=== PATIENT | male | born 1955 | race African-American/Black ===

== ENCOUNTER → 2018-12-24 18:40 | Outpatient (CLI) | payer BC | END | disposition home or self-care (01) | LOC: D.LABREF 18:40 | PROVIDERS: ATTEND Orthopaedic Surgery | DX: M19.012 Primary osteoarthritis, left shoulder (principal) ==

== ENCOUNTER 2018-12-30 11:32 | Inpatient (IN) | payer BC ==
[2019-02-17] MEDS ORDERED: COZAAR100 MG PO (14:45)
[2019-02-17] MEDS ORDERED: SINEMET PO (14:45)
[2019-02-17] MEDS ORDERED: RYTARY (14:46)
[2019-02-17] MEDS ORDERED: CARBIDOPA-LEVO1 EAC2 PO (14:47)
[2019-02-17 15:41] LABS: BASOPHILS 0.3 % (0-2); EOSINOPHILS 3.2 % (0-7); HEMATOCRIT 47.2 % (42.0-54.0); HEMOGLOBIN 16.8 g/dL (13.5-17.5); IMMATURE GRANULOCYTES 0.6 % (0-5); LYMPHOCYTES 21.6 % (15-50); MCH 29.9 pg (26.0-34.0); MCHC 35.6 g/dL (31.0-37.0); MEAN PLATELET VOLUME 9.9 fL (7.4-10.4); MONOCYTES 7.1 % (2-11); NEUTROPHILS 67.2 % (40-80); PLATELET COUNT 196 10x3/uL (130-400); RBC 5.62 10x6/uL (4.20-6.10); RDW 14.4 % (11.5-14.5); WBC 6.8 10x3/uL (4.8-10.8)
[2019-02-17 16:14] LABS: APPEARANCE CLEAR (CLEAR); BILIRUBIN NEGATIVE (NEGATIVE); COLOR YELLOW (YELLOW); GLUCOSE NEGATIVE (NEGATIVE); KETONE NEGATIVE (NEGATIVE); NITRITE NEGATIVE (NEGATIVE); PROTEIN NEGATIVE (NEGATIVE); UROBILINOGEN NORMAL (NORMAL)
[2019-02-17 16:31] LABS: CALCIUM 8.7 mg/dL (8.5-10.1); CARBON DIOXIDE 25.2 mmol/L (21.0-32.0); CREATININE - SERUM 1.1 mg/dL (0.6-1.3); POTASSIUM - SERUM 4.2 mmol/L (3.5-5.1)
[2019-02-17 16:37] LABS: APTT 32.9 SECONDS (22.8-39.4); INR 0.86 (0.85-1.17); PROTIME 11.3 SECONDS (11.6-15.0)
[2019-02-19] VITALS (7 sets, daily range): BP systolic 91–137; BP diastolic 36–87; BMI 33.1
--- NOTE | 2019-02-19 12:42 | NUR ---
ASSESSMENT PER ADMIT FLOW SHEET. PT IS WITHOUT DISTRESS. COMPLAINS OF PAIN TO BILATERAL KNEES.HIS STATES ARTHRITIS PAIN ALL THE TIME. PT DENIES PAIN IN LEFT SHOULDER.DRESSING TO LEFT SHOULDER HAS SOME RED DRAINAGE NOTED UNDER TOP OF DRESSING.CALL LIGHT IN REACH
--- NOTE | 2019-02-19 17:13 | OP ---
PATIENT NAME: LUCILA VITAL MEDICAL RECORD: [id number] :59 LOCATION:D.[id number] ADMISSION DATE:02/19/19 SURGEON: LATOSHA MENDOZA MD DATE OF OPERATION: 02/19/2019 PREOPERATIVE DIAGNOSIS: Degenerative arthritis, left shoulder. POSTOPERATIVE DIAGNOSIS: Degenerative arthritis, left shoulder. PROCEDURE: Left total shoulder arthroplasty. SURGEON: Latosha Mendoza MD HYDRAULIC TECHNICIAN: JIM Quevedo INTRAOPERATIVE COMPLICATIONS: None. SUMMARY OF PATHOLOGIC FINDINGS: Extensive osteoarthritis of the glenohumeral joint of the left shoulder. IMPLANTS USED: Arthrex Univers apex humeral stem size 10. A large apex Univers VaultLock, apex Univers humeral head 52-20 offset press fit. OPERATIVE SUMMARY IN DETAIL: After obtaining the appropriate preoperative orthopedic surgery consent as well as anesthetic consultation, evaluation, and clearance, the patient was brought to the operating room and placed on the operating table in supine position. After general laryngeal mask airway was administered, the patient was placed in the beach chair position. All pressure points were well padded. He was held firmly to the operating table using the vacuum pack suction system. Left upper extremity and shoulder were then prepped and draped in routine sterile fashion. The arm was held in the Arthrex Trimano arm holding device. The previously utilized incision was utilized again for a deltopectoral approach. The cephalic vein was identified and protected throughout the entire case. Deltopectoral interval was taken down. Clavipectoral fascia was incised. The deltoid was retracted using the brown retractor. At this point, the subscapularis was taken off in a peel method. Biceps was cut and saved for later tenodesis. The humeral head was then dislocated through the wound. Humeral head cut was made using the proximal humeral head cutting guide for the Univers system. Serial and sequential reaming and broaching were done for a size 10 Univers apex system. The broach was put into place with the humeral head cut protector. The glenoid was then approached. Circumferential labrectomy was then followed by placing center pin reaming for a size large glenoid. The final preparations were made for the size large glenoid with the apex and inferior keel holes. Irrigation was then followed by final preparation then followed by cementing of the VaultLock system in place. Excess cement was removed. This was held in place while the cement was allowed to harden. Shoulder was then brought back to the wound. The trial was taken out final size 10 apex Univers was tamped into place. Inferior and superior locks were tamped followed by placement of the humeral head, tamped in place with the Snyder taper. Shoulder was reduced to the appropriate posterior subluxation of proximal 1/3. At this point, the subscapularis was reapproximated to the lesser tuberosity in transosseous fashion using #2 Ethibond with a biceps tenodesis incorporated. Wound was then irrigated and finally closed with #1 Vicryl, 2-0 Vicryl and skin himanshu done by JIM Quevedo. Sterile dressings were applied. The patient was awakened and taken to OPERATIVE REPORT [id number] LUCILA VITAL recovery room in stable condition. All final needle and sponge counts were correct. TRANSINT:[id number] Voice Confirmation ID: [id number] DOCUMENT ID: [id number] KELLY CID, LATOSHA KNIGHT at 1713 CC: [id number] DICTATION DATE: 02/19/19 1011 DRY CELL ASSEMBLY MACHINE TENDER: 02/19/19 1058 ADM IN [facility] [address] [id number]
--- NOTE | 2019-02-19 20:00 | NUR ---
ALERT RESTING IN BED, MADELEINE WRAP AND DRESSING INTACT TO LEFT ARM AND SHOULDER, DENEIS PAIN STATES STILL NUMB ABLE TO MOVE FINGERS, SEE SHIFT ASSESSMENT, CALL LIGHT IN USE
[2019-02-20] VITALS: BP 107/69
[2019-02-20 04:00] VITALS: BP 122/74
[2019-02-20 04:28] LABS: HEMATOCRIT 43.6 % (42.0-54.0); MCH 29.8 pg (26.0-34.0); MCHC 34.4 g/dL (31.0-37.0); MCV 86.5 fL (80.0-100.0); RBC 5.04 10x6/uL (4.20-6.10); RDW 14.9 % (11.5-14.5); WBC 16.3 10x3/uL (4.8-10.8)
--- NOTE | 2019-02-20 07:22 | NUR ---
PATIENT LYING IN BED. ALERT AND ORIENTED X 3. LUNGS CLEAR BILATERALLY IN ALL MEDINA. HEART SOUNDS S1 AND S2 HEARD IN ALL MEDINA. BOWEL SOUNDS ACTIVE X 4. IV TO RIGHT HAND PATENT WITHOUT REDNESS. SKIN INTACT WITHOUT REDNESS. DRESSING TO LEFT SHOULDER C/D/I. DENIES PAIN DENIES NEEDS. WILL CONTINUE TO MONITOR.
[2019-02-20 08:00] VITALS: BP 110/78
[2019-02-20] MEDS ORDERED: PERCOCET 10-321 EAC1 PO (08:24)
--- NOTE | 2019-02-20 08:32 | NUR ---
SITTING IN BED EATING BREAKFAST. MEDICATIONS GIVEN WITHOUT DIFFICULTY. DENIES PAIN. DENIES NEEDS. WILL CONTINUE TO MONITOR.
--- NOTE | 2019-02-20 10:01 | NUR ---
DISCHARGE EDUCATION PROVIDED BOTH WRITTEN AND VERBAL. VERBALIZED UNDERSTANDING. DRSG CHANGED TO LEFT SHOULDER. INCISIONS C/D/I. ADDITIONAL DRESSING SENT WITH PATIENT. IV REMOVED TO RIGHT HAND WITH TIP INTACT. DENIES FURTHER QUESTIONS. DISCHARGED HOME WITH ALL BELONGINGS.
[2019-02-26 09:53] VITALS: BMI 33.1
== END 2019-02-20 10:17 | disposition home or self-care (01) | DRG 483 ==
LOC: D.SDCHOLD 02-16 07:30 → D.MS 02-19 10:54 → D.SDCHOLD 02-19 13:10 → D.MS 02-20 10:17
PROVIDERS: ADMIT Orthopaedic Surgery; ATTEND Orthopaedic Surgery
PROC: 0RRK0JZ Replacement of Left Shoulder Joint with Synthetic Substitute, Open Approach (ICD-10-PCS; principal; 2019-02-19 08:45)
DX: M19.012 Primary osteoarthritis, left shoulder (principal)

== ENCOUNTER → 2019-08-28 08:49 | Outpatient (CLI) | payer BC ==
[2019-02-26 09:53] VITALS: BMI 33.1
[~2019-08-28 08:49] MED LIST: AMANTADINE100 M1 PO; CARBIDOPA-LEVO1 EAC2 PO; COZAAR100 MG PO; PAXIL10 MG PO; PERCOCET 10-321 EAC1 PO; RYTARY; SINEMET 25-1001 EAC1 PO; SINEMET PO; TRAZODONE TAB 50M PO; XANAX0.25 MG PO
== END | disposition home or self-care (01) ==
LOC: D.RAD 08:49 → D.CT 10:30
PROVIDERS: ATTEND Clinical Nurse Specialist Family Health
DX: M25.512 Pain in left shoulder (principal)

== ENCOUNTER 2019-09-24 08:25 | Day surgery (SDC) | payer BC ==
[2019-09-22 11:17] LABS: HEMATOCRIT 44.7 % (42.0-54.0); HEMOGLOBIN 15.3 g/dL (13.5-17.5); MCH 30.8 pg (26.0-34.0); MCHC 34.2 g/dL (31.0-37.0); MCV 89.9 fL (80.0-100.0); MEAN PLATELET VOLUME 10.2 fL (7.4-10.4); RBC 4.97 10x6/uL (4.20-6.10); RDW 13.7 % (11.5-14.5); WBC 6.8 10x3/uL (4.8-10.8)
[~2019-09-24] VITALS: Ht 182.9 cm; Wt 108.9 kg
[~2019-09-24 08:25] MED LIST changes: -SINEMET 25-1001 EAC1 PO
[2019-09-24] MEDS ORDERED: SINEMET 25-1001 EAC1 PO (09:39)
[2019-09-24 09:40] VITALS: BP 120/85; Ht 182.9 cm; Wt 108.9 kg
[2019-09-24] MEDS ORDERED: PERCOCET 10-321 EAC1 PO (11:16)
--- NOTE | 2019-09-24 14:04 | OP ---
PATIENT NAME: LUCILA VITAL MEDICAL RECORD: [id number] :59 LOCATION:[facility] ADMISSION DATE: SURGEON: LATOSHA MENDZOA MD DATE OF OPERATION: 09/24/2019 PREOPERATIVE DIAGNOSIS: Rotator cuff tear of the left shoulder. POSTOPERATIVE DIAGNOSES: 1. Rotator cuff tear of the left shoulder. 2. Impingement. PROCEDURES: 1. Open rotator cuff repair of the left shoulder. 2. Tuberoplasty of the left shoulder. 3. Subacromial decompression. SURGEON: Latosha Mendoza MD FOREST ENGINEER: JIM Bell ANESTHESIA: General. INTRAOPERATIVE COMPLICATIONS: None. SUMMARY OF PATHOLOGIC FINDINGS: The patient's greater tuberosity was prominent posterior; however, the rotator cuff was anterior. The rotator cuff required repair and the tuberosities were taken down to the level of the previously placed total shoulder arthroplasty. OPERATIVE SUMMARY IN DETAIL: After obtaining the appropriate preoperative orthopedic surgery consent as well as anesthetic consultation, evaluation and clearance, the patient was brought to the operating room and placed on the operating table in supine position. After adequate general laryngeal mask airway was administered, the patient was placed in the beach chair position. All pressure points were well-padded. He was held firmly to the operating table using the vacuum pack suction system. Left upper extremity and shoulder were then prepped and draped in routine sterile fashion. The arm was held in the Trimano arm holding device. After the appropriate timeout was taken, incision was made in anterolateral fashion, taken down to the level of the acromion anterior aspect. Periosteal reflection was done in order to save good periosteal tissue for reapproximation to the acromion. After reflection of the deltoid, the rotator cuff tear was exposed. Having completed this, the rotator cuff tear was completed out laterally. The supraspinatus was gently elevated to reveal the prominent tuberosities. Tuberosities were then taken down with a saw and smoothened to avoid any further impingement of the prominent greater tuberosity superiorly and posteriorly. Having completed this, copious irrigation was then followed by a pkzl-fa-pkgn reapproximation of the anterior aspect of the rotator cuff tear and then gljs-lx-wner reapproximation of the posterior leaflet that was created. This was then anchored down with two 4.75 SwiveLock posteriorly and anteriorly to the stem of the prosthesis. Good cortical purchase was achieved. A very small flap was then residual. This was fixed qrtz-pq-znun with FiberWire as well. Having completed this, a Cano elevator was placed underneath the acromion to protect it while acromioplasty was performed. Copious irrigation was then followed by reapproximation of the deltoid in a wezis-rjcl-demz style imbricated suture to reapproximate the OPERATIVE REPORT [id number] AMANUELLUCILA JOSE deltoid back to the acromion with #2 Ethibond. Further #2 Ethibond was then utilized to reapproximate the residual of the deltoid. Having completed this, Oneal Catherine closed the remainder of the wound with #1 Vicryl followed by skin himanshu. Sterile dressings were applied and abduction sling was applied. The patient was then awakened and taken to the recovery room in stable condition. All final needle and sponge counts were correct. TRANSINT:[id number] Voice Confirmation ID: [id number] DOCUMENT ID: [id number] KELLY CID, LATOSHA KNIGHT at 1404 CC: [id number] DICTATION DATE: 09/24/19 1120 DOG DAY CARE ATTENDANT: 09/24/19 1330 REG [facility] [address] [place] [address]
== END 2019-09-24 15:10 | disposition home or self-care (01) ==
LOC: D.OPS 08:25 → D.PAN 10:30 → D.OPS 10:35
PROVIDERS: Anesthesiology; ATTEND Orthopaedic Surgery
DX: M75.102 Unspecified rotator cuff tear or rupture of left shoulder, not specified as traumatic (principal); M25.80 Other specified joint disorders, unspecified joint

== ENCOUNTER 2019-11-12 07:25 | Day surgery (SDC) | payer BC ==
[2019-11-10 13:16] LABS: HEMOGLOBIN 14.5 g/dL (13.5-17.5); MCH 30.7 pg (26.0-34.0); MCHC 34.5 g/dL (31.0-37.0); MCV 88.8 fL (80.0-100.0); MEAN PLATELET VOLUME 9.6 fL (7.4-10.4); RBC 4.73 10x6/uL (4.20-6.10); RDW 14.1 % (11.5-14.5); WBC 6.1 10x3/uL (4.8-10.8)
[2019-11-10 13:42] LABS: CALCIUM 8.4 mg/dL (8.5-10.1); CARBON DIOXIDE 27.6 mmol/L (21.0-32.0); CHLORIDE - SERUM 105 mmol/L (98-107); POTASSIUM - SERUM 3.9 mmol/L (3.5-5.1); SODIUM 141 mmol/L (136-145); UREA NITROGEN 17 mg/dL (7-18); eGFR NON AFRICAN AMERICAN 80 mL/min (90-120)
[2019-11-10 13:47] LABS: CALC OSMOLALITY 282 mosm/kg (275-300); GLUCOSE 104 mg/dL (74-106)
[~2019-11-12] VITALS: Ht 182.9 cm; Wt 108.9 kg
[~2019-11-12 07:25] MED LIST changes: +SINEMET 25-1001 EAC1 PO
[2019-11-12] MEDS ORDERED: HYDROCODON-ACE1 EA10 PO ×2 (07:39→10:11)
[2019-11-12 07:41] VITALS: BP 123/83; Ht 182.9 cm; Wt 108.9 kg
--- NOTE | 2019-11-12 16:47 | NUR ---
1235 PT IS NOT KEEPING HIS OXYGEN SATURATION ABOVE 92% AFTER SEVERAL TIMES OF COUGHING AND DEEP BREATHING. BILATERAL BREATH SOUNDS NOTED AND LUNGS SOUND CLEAR. NO WHEEZING NOTED. BASELINE O2 SAT WAS 100% NEVIN DOWELL, STUDENT NURSE ANESTHESIS IN UNIT AND ASKED TO EVALUATE PT. SHE AGREES WITH MY ASSESSMENT OF PT'S BREATH SOUNDS. UPDRAFT ORDERED PER HER REQUEST TO SEE IF THAT WOULD IMPROVE HIS BREATHING. PT TOLD HER HE RECENTLY WAS PUT ON ALBUTERAL SINCE HE BREATHS SHALLOW. PT DENIES SOB OR ANY LUNG DISEASE. 1310 NO IMPROVEMENT WITH OXYGEN AFTER UPDRAFT TREATMENT. REKHA ROONEY TO TALK TO DR SANDERS ABOUT PT. 1335 DR SANDERS AT BEDSIDE EVALUATING PT. PCXR ORDERED PER HIS REQUEST. 1343 PCXR DONE AT BEDSIDE. 1400 PT COMFORTABLE AND IN NO RESPIRATORY DISTRESS. CONTINUES TO BREATH SHALLOW. PT ENCOURAGED FREQUENTLY TO COUGH AND DEEP BREATH. [address] CALL FROM DR SANDERS THAT CXR SHOWS ATELECTASIS IN LOWER BASES BILATERALLY. DR SANDERS STATES THAT PT CAN BE DISCHARGED HOME BUT TO INSTRUCT HIM TO COUGH AND DEEP BREATH. 150O PT IS AWARE OF RESULTS OF CXR AND DR. SANDERS'S INSTRUCTIONS. AN INCENTIVE SPIROMETER GIVEN TO PT TO USE AT HOME ONCE AN HOUR WHILE AWAKE. PT HAS USED AN INCENTIVE SPIROMETER BEFORE AND KNOWS HOW TO OPERATE IT. PT HAD EARLIER COMPLAINED OF BURNING IN RIGHT ELBOW THAT WAS CONSTANT & WAS REQUESTING PAIN MED FOR 7 OUT OF 10 ON THE PAIN SCALE. PAIN LEVEL IS NOW 3-4 OUT OF 10 ON PAIN SCALE. PT TOOK HIS OWN [facility] TO KEEP IT ON SCHEDULE AT 1240. 1501 IV DC'D. CATHETER TIP INTACT. NO BLEEDING AT SITE. BANDAID APPLIED. PT VOICES UNDERSTANDING OF DISCHARGE INSTRUCTIONS AND IS READY TO GO HOME.
--- NOTE | 2019-11-12 17:06 | NUR ---
1515 ASSISTED PT IN GETTING DRESSED AND TRANSPORTING INTO FOR DISCHARGE HOME. SHAKING FROM [facility].
--- NOTE | 2019-11-15 10:02 | OP ---
PATIENT NAME: LUCILA VITAL MEDICAL RECORD: [id number] :59 LOCATION:[facility] ADMISSION DATE: SURGEON: LATOSHA MENDOZA MD DATE OF OPERATION: 11/12/2019 PREOPERATIVE DIAGNOSES: 1. Comminuted fracture of the right radial head. 2. Severe Parkinson disease. 3. Multiple recent falls. POSTOPERATIVE DIAGNOSES: 1. Comminuted fracture of the right radial head. 2. Severe Parkinson disease. 3. Multiple recent falls. PROCEDURE: Right radial head arthroplasty. LIBRARIAN HELPER: JIM Bell INTRAOPERATIVE COMPLICATIONS: None. SUMMARY OF PATHOLOGIC FINDINGS: The patient had an intraarticular split with displacement of the radial head. Rather than risk tenuous at best fixation in this patient with Parkinson of multiple recent falls, I felt it more prudent to replace the radial head with a [employer] radial head arthroplasty +4 stem size 26 standard. OPERATIVE SUMMARY IN DETAIL: After obtaining the appropriate preoperative orthopedic surgery consent as well as anesthetic consultation, evaluation, and clearance, the patient was brought to the operating room and placed on the operating room table in supine position. After adequate general laryngeal mask airway was administered, tourniquet was placed in the proximal aspect of the right upper extremity. Right upper extremity was then prepped and draped in routine sterile fashion. At this point, the appropriate timeout was taken and agreed upon by all. After all the patient's unique identifiers were noted. Arm was exsanguinated and elevated, tourniquet was inflated to 250 mmHg. An incision was made directly over the radial head, taken down to the level of the fascia of the anconeus and then deep into the extensor mechanism. Upon entering the joint capsule substantial amounts of joint fluid was removed along with some fragments of the fracture. The patient did have some chondromalacia of the capitellum associated with this injury. After evaluating the fragment and taking all factors into account, radial neck was cut in preparation for radial head arthroplasty and subsequent reaming were done to the radial neck. Care was taken to avoid any proximity of the posterior interosseous nerve. Trials were undertaken and it was felt that the one corresponding to the final implant was most appropriate. This was gently tamped into place, taken through range of motion and found to be stable in all planes. Intraoperative radiographs were taken and showed good position and placement of the radial head arthroplasty. Wound was copiously irrigated. The capsule was then closed watertight seal using #1 Vicryl, this was followed by #1 Vicryl for the deep fascial layer followed by 2-0 Vicryl and running 4-0 Prolene for final closure. Sterile dressing was applied. Tourniquet was deflated. A posterior splint was then applied. Having completed this, the patient was awakened and taken to recovery room in stable condition. All final needle and sponge counts were correct. OPERATIVE REPORT [id number] LUCILA VITAL TRANSINT:[id number] Voice Confirmation ID: [id number] DOCUMENT ID: [id number] KELLY CID, LATOSHA KNIGHT at 1002 CC: [id number] DICTATION DATE: 11/12/19 1024 TELEPHONE SERVICE ADVISER: 11/12/19 1354 [facility] 11/12/[id number] [place] [address]
== END 2019-11-12 15:17 | disposition home or self-care (01) ==
LOC: D.PAN 07:25 → D.OPS 11:55 → D.PAN 15:17
PROVIDERS: Anesthesiology; ATTEND Orthopaedic Surgery
DX: S52.121A Displaced fracture of head of right radius, initial encounter for closed fracture (principal); G20 Parkinson's disease; Z91.81 History of falling; Z96.612 Presence of left artificial shoulder joint; M75.120 Complete rotator cuff tear or rupture of unspecified shoulder, not specified as traumatic; X58.XXXA Exposure to other specified factors, initial encounter

== ENCOUNTER 2019-12-02 11:45 | Inpatient (IN) | payer BC ==
[~2019-12-02] VITALS: Ht 182.9 cm; Wt 113.4 kg
[~2019-12-02 11:45] MED LIST changes: +HYDROCODON-ACE1 EA10 PO
[2019-12-07] VITALS (10 sets, daily range): BP systolic 93–156; BP diastolic 56–98; BMI 34.0
[2019-12-07 11:01] LABS: BASOPHILS 0.4 % (0-2); EOSINOPHILS 4.6 % (0-7); HEMATOCRIT 41.6 % (42.0-54.0); HEMOGLOBIN 14.4 g/dL (13.5-17.5); IMMATURE GRANULOCYTES 0.2 % (0-5); LYMPHOCYTES 26.5 % (15-50); MCH 30.2 pg (26.0-34.0); MCHC 34.6 g/dL (31.0-37.0); MCV 87.2 fL (80.0-100.0); MEAN PLATELET VOLUME 9.8 fL (7.4-10.4); MONOCYTES 6.1 % (2-11); NEUTROPHILS 62.2 % (40-80); PLATELET COUNT 183 10x3/uL (130-400); RBC 4.77 10x6/uL (4.20-6.10); RDW 13.1 % (11.5-14.5); WBC 4.6 10x3/uL (4.8-10.8)
[2019-12-07 11:12] LABS: APTT 38.1 SECONDS (22.8-39.4)
[2019-12-07 11:13] LABS: INR 0.98 (0.85-1.17); PROTIME 12.9 SECONDS (11.6-15.0)
[2019-12-07 11:19] LABS: CALC OSMOLALITY 280 mosm/kg (275-300); CALCIUM 8.7 mg/dL (8.5-10.1); CARBON DIOXIDE 30.6 mmol/L (21.0-32.0); CHLORIDE - SERUM 107 mmol/L (98-107); GLUCOSE 113 mg/dL (74-106); POTASSIUM - SERUM 4.1 mmol/L (3.5-5.1); SODIUM 140 mmol/L (136-145); UREA NITROGEN 15 mg/dL (7-18); eGFR NON AFRICAN AMERICAN 80 mL/min (90-120)
--- NOTE | 2019-12-07 13:29 | NUR ---
1240: UA NOT COLLECTED UPON ADMISSION FOR SURGERY. PT UNABLE TO VOID PRIOR TO GOING TO SURGERY. DR. MENDOZA NOTIFIED. ESQUEDA CATHETER ORDERED TO BE PLACED FOR SURGERY. UA COLLECTED UPON INSERTION AND SENT TO LAB.
[2019-12-07 13:51] LABS: APPEARANCE HAZY (CLEAR); BILIRUBIN NEGATIVE (NEGATIVE); COLOR YELLOW (YELLOW); GLUCOSE NEGATIVE (NEGATIVE); KETONE SMALL mg/dL (NEGATIVE); NITRITE NEGATIVE (NEGATIVE); PROTEIN NEGATIVE (NEGATIVE); SPECIFIC GRAVITY 1.015 (1.005-1.020); UROBILINOGEN NORMAL (NORMAL)
[2019-12-07 13:52] LABS: BACTERIA FEW /hpf (NEGATIVE); EPITHELIAL CELLS 0-5 /hpf (0-5); RED CELLS - URINE 0-5 /hpf (0-5); WHITE CELLS - URINE OCC /hpf (NEGATIVE)
--- NOTE | 2019-12-07 15:54 | NUR ---
RECEIVED TO ROOM 1213 VIA BED FROM PACU. A/O X3. NO C/O PAIN OR DISCOMFORT. MOVES DIGITS FREELY ON LEFT HAND. DRESSING TO LEFT SHOULDER DRY AND INTACT WITH WOUND VAC IN PLACE.NO DRAINING NOTED. SKIN IS INTACT WIHTOUT REDNESS EXCEPT INCISION TO LEFT SHOULDER.
--- NOTE | 2019-12-07 16:14 | MORECARE ---
CASE MANAGEMENT DISCHARGE SUMMARY PATIENT: LUCILA VITAL UNIT: [id number] ADM DATE: 12/07/19 AGE: 64 : 59 SEX: M ROOM/BED: D.1212 AUTHOR: ROSS CHRISTOPHER PHYSICIAN: REFERRING PHYSICIAN: LATOSHA MENDOZA MD DATE OF SERVICE: 12/07/19 Discharge Plan Patient Name: LUCILA VITAL Facility: [facility]:[place] : 1955 Planned Disposition: Anticipated Discharge Date: Discharge Date: Expected LOS: Initial Reviewer: [email or web address] Initial Review Date: 12/07/2019 Generated: 12/07/19 5:13 pm Patient Name: LUCILA VITAL Page [id number] at 1614 All edits/amendments must be made on the electronic document DICTATION DATE: 12/07/19 1613 MINUTE CLERK FOR BASIC TRAFFIC: FRANCIS 12/07/19 1613 RPT#: [id number] DC DATE: STATUS: ADM IN [facility] [address] [place] [address] END OF REPORT
--- NOTE | 2019-12-07 18:12 | NUR ---
SITTING UP IN BED EATING SUPPER. DENIES NEED. NO CHANGES NOTED. VSS.
--- NOTE | 2019-12-07 19:50 | NUR ---
LYING IN BED. ALERT AND ORIENTED X4. HOB ELEVATED. RESP EVEN AND NONLABORED. TALKATIVE WITH STAFF. WOUND VAC NOTED TO LT SHOULDER WITH NO DRAINAGE NOTED IN CANISTER. SCDS IN USE BILAT. ESQUEDA CATH PATENT AND DRAINING CLEAR YELLOW URINE. DENIES PAIN AT THIS TIME. 1/2 NS @ 75 MLHR INFUSING IN RT HAND WITHOUT DIFF. SR ELEVATED X2. CL IN REACH.
--- NOTE | 2019-12-07 21:20 | NUR ---
MEDICATED WITH PERCOCET FOR C/O PAIN IN LT SHOULDER RATING 8. CL IN REACH.
[2019-12-08] VITALS (7 sets, daily range): BP systolic 109–139; BP diastolic 69–79; Ht 182.9 cm; Wt 113.4 kg
--- NOTE | 2019-12-08 00:03 | NUR ---
AWAKE. LYING IN BED. NO DISTRESS. CL IN REACH.
--- NOTE | 2019-12-08 03:48 | NUR ---
MEDICATED WITH PERCOCET FOR C/O PAIN IN LT SHOULDER RATING 8 ON PAIN SCALE. CL IN REACH. URINE SPECIMEN COLLECTED FROM ESQUEDA AND SENT TO LAB.
--- NOTE | 2019-12-08 05:00 | NUR ---
BED BATH GIVEN PER RUBBER TESTER AND COMPLETE LINEN CHANGE DONE AT THIS TIME. PT SARAI WELL. HOB ELEVATED. CL IN REACH. NO DISTRESS.
[2019-12-08 06:56] LABS: HEMATOCRIT 36.8 % (42.0-54.0); HEMOGLOBIN 12.8 g/dL (13.5-17.5); MCH 30.3 pg (26.0-34.0); MCHC 34.8 g/dL (31.0-37.0); MCV 87.2 fL (80.0-100.0); MEAN PLATELET VOLUME 9.9 fL (7.4-10.4); RBC 4.22 10x6/uL (4.20-6.10); RDW 13.3 % (11.5-14.5)
[2019-12-08 06:57] LABS: WBC 8.1 10x3/uL (4.8-10.8)
--- NOTE | 2019-12-08 07:15 | NUR ---
PATIENT RESTING IN BED WITH HOB ELEVATED. NO COMPLAINTS. STATES DILAUDED AIR POLLUTION CONTROL ENGINEER PUMP IS HELPING WITH THE PAIN BETTER THAN THE PERCOCET. WOUND VAC TO LEFT SHOULDER FUNCTIONING PROPERLY. NO DRAINAGE FROM WOUND VAC. LEFT ARM IN SLING. IV TO RIGHT HAND INFUSING 1/2NS @ 75 ML/HR. ESQUEDA DRAINING YELLOW COLORED URINE. SCD'S ON. DENIES HAVING ANY NEEDS AT THIS TIME. BED IN LOWEST POSITION. SIDE RAILS UP. CALL LIGHT IN REACH. WILL CONTINUE TO MONITOR.
[2019-12-08 07:47] LABS: APPEARANCE HAZY (CLEAR); BILIRUBIN NEGATIVE (NEGATIVE); COLOR YELLOW (YELLOW); GLUCOSE NEGATIVE (NEGATIVE); KETONE NEGATIVE (NEGATIVE); NITRITE NEGATIVE (NEGATIVE); PROTEIN 1+ mg/dL (NEGATIVE); UROBILINOGEN NORMAL (NORMAL); WHITE CELLS - URINE OCC /hpf (NEGATIVE)
[2019-12-08 07:48] LABS: BACTERIA FEW /hpf (NEGATIVE); EPITHELIAL CELLS RARE /hpf (0-5); RED CELLS - URINE 25-50 /hpf (0-5)
--- NOTE | 2019-12-08 08:45 | NUR ---
ESQUEDA CATHETER D/C'D PER ORDER. CATHETER REMOVED WITHOUT DIFFICULTY. CATHETER TIP INTACT. PATIENT TOLERATED WELL. PATIENT INSTRUCTED TO NOTIFY NURSE OF FIRST VOID. WILL CONTINUE TO MONITOR.
[2019-12-08] MEDS ORDERED: HYDROCODON-ACE1 EA10 PO (08:50)
--- NOTE | 2019-12-08 10:05 | MORECARE ---
CASE MANAGEMENT DISCHARGE SUMMARY PATIENT: LUCILA VITAL UNIT: [id number] ADM DATE: 12/07/19 AGE: 64 : 59 SEX: M ROOM/BED: D.1212 AUTHOR: ROSS CHRISTOPHER PHYSICIAN: REFERRING PHYSICIAN: LATOSHA MENDOZA MD DATE OF SERVICE: 12/08/19 Discharge Plan Patient Name: LUCILA VITAL Facility: [facility]:[place] : 1955 Planned Disposition: Anticipated Discharge Date: Discharge Date: Expected LOS: Initial Reviewer: [email or web address] Initial Review Date: 12/07/2019 Generated: 12/08/19 11:04 am Comments DCP- Discharge Planning Updated by [email or web address]: Mariel Sarmiento on 12/08/19 9:[address] Met with patient regarding dc plans. Patient request CM contact #1 [facility], #2 [facility], #3 [facility] for his rehab. Faxed information to [facility] and spoke with Ajay. Last DP export: 12/07/19 3:14 p Patient Name: LUCILA VITAL Page [id number] at 1005 All edits/amendments must be made on the electronic document DICTATION DATE: 12/08/19 100 STATE INSPECTOR: FRANCIS 12/08/19 1004 RPT#: [id number] DC DATE: STATUS: ADM IN [facility] [address] [place] [address] END OF REPORT
--- NOTE | 2019-12-08 10:30 | NUR ---
PATIENT VOIDED 250 CC WITHOUT DIFFICULTY.
--- NOTE | 2019-12-08 12:07 | MORECARE ---
CASE MANAGEMENT DISCHARGE SUMMARY PATIENT: LUCILA STERN UNIT: [id number] ADM DATE: 12/07/19 AGE: 64 : 59 SEX: M ROOM/BED: D.1212 AUTHOR: CANDI,ROSS PHYSICIAN: REFERRING PHYSICIAN: LATOSHA MENDOZA MD DATE OF SERVICE: 12/08/19 Discharge Plan Patient Name: LUCILA STERN Facility: [facility]:[place] : 1955 Planned Disposition: Anticipated Discharge Date: Discharge Date: Expected LOS: Initial Reviewer: [email or web address] Initial Review Date: 12/07/2019 Generated: 12/08/19 1:07 pm Comments DCP- Discharge Planning Updated by [email or web address]: Mariel Sarmiento on 12/08/19 11:[address] CM met with patient to discuss initial discharge planning. Patient is in agreement to proceed with the assessment. Patient reports that he lives at home totally dependent on his spouse for care over the past 6 months, due to his Parkinson's symptoms. Patient is alert/oriented. PCP: Dr. Szymanski (OR). Pharmacy: [facility]. Patient states they have been able to obtain all of their prescribed medications. HHS: No. DME: Manual W/C, Walker (uses w/c mostly). Patient gives permission to speak with family members/care givers. Emergency contact: Sherine Treadwell () [phone]. Patient is CM discussed the availability of HH, Rehab, DME services. Patient request Rehab at [facility], [facility] or [facility] upon dc. Patient denies being hospitalized within the past 30 days. Patient denies the use of community resources CLAIM TAKER. Transportation at time of discharge: Facility. CM will assist with dc needs/plans PRN. DCP- Discharge Planning Updated by [email or web address]: Mariel Sarmiento on 12/08/19 9:[address] Met with patient regarding dc plans. Patient request CM contact #1 [facility], #2 [facility], #3 [facility] for his rehab. Faxed information to [facility] and spoke with Ajay. Coverage Notice Reviewer: [email or web address] - Mariel Sarmiento Notice Issued Date-Time: 12/08/2019 11:46 Notice Type: Patient Choice Letter Notice Delivered To: Patient Relationship to Patient: Self Ssis Etl Developer Name: Lucila Stern Delivery Method: HAND - Hand Delivered Tiana Days: Prior Verbal Notification: Recipient Understood Notice: Yes Recipient Signature: Yes Med Rec Note Co-signed by Attending: Coverage Notice Comment: Patient choice for Rehab services signed. Original given to patient and one placed on the chart. Last DP export: 12/08/19 9:05 a Patient Name: LUCILA STERN Page [phone] at 1207 All edits/amendments must be made on the electronic document DICTATION DATE: 12/08/19 1207 ENROLLMENT SPECIALIST: FRANCIS 12/08/19 1207 RPT#: [id number] DC DATE: STATUS: ADM IN [facility] [address] [place] [address] END OF REPORT
--- NOTE | 2019-12-08 12:07 | NUR ---
Rehab Note- Acute INpatient Rehab prescreen order received. The patient has [employer] insurance and will require a PreAuth prior to an acute inpatient rehab stay. Will need PT Eval completed and will need an OT Eval ordered for PreAuth process. Will follow at this time. Thank you for this referral! Sandie Joseph RN Clinical Liaison, [facility] Rehab
--- NOTE | 2019-12-08 14:42 | MORECARE ---
CASE MANAGEMENT DISCHARGE SUMMARY PATIENT: LUCILA STERN UNIT: [id number] ADM DATE: 12/07/19 AGE: 64 : 59 SEX: M ROOM/BED: D.1212 AUTHOR: ROSS CHRISTOPHER PHYSICIAN: REFERRING PHYSICIAN: LATOSHA MENDOZA MD DATE OF SERVICE: 12/08/19 Discharge Plan Patient Name: LUCILA STERN Facility: [facility]:[place] : 1955 Planned Disposition: Anticipated Discharge Date: Discharge Date: Expected LOS: Initial Reviewer: [email or web address] Initial Review Date: 12/07/2019 Generated: 12/08/19 3:42 pm Comments DCP- Discharge Planning Updated by [id number]: Mariel Sarmiento on 12/08/19 1:[address] CM met with patient to discuss initial discharge planning. Patient is in agreement to proceed with the assessment. Patient reports that he lives at home totally dependent on his spouse for care over the past 6 months, due to his Parkinson's symptoms. Patient is alert/oriented. PCP: Dr. Szymanski ([place]). Pharmacy: [facility]. Patient states they have been able to obtain all of their prescribed medications. HHS: No. DME: Manual W/C, Walker (uses w/c mostly). Patient gives permission to speak with family members/care givers. Emergency contact: Sherine Treadwell () [phone]. Patient is CM discussed the availability of HH, Rehab, DME services. Patient request Rehab at [place], [facility] or [facility] upon dc. Patient denies being hospitalized within the past 30 days. Patient denies the use of community resources FINAL COAT SPRAYER. Transportation at time of discharge: Facility. CM will assist with dc needs/plans PRN. Appended by Mariel Sarmiento on 12/08/2019 14:42 TIRE CORD WEAVER: Phone call from Ajay, with [facility] and she states the patient does not have any skilled days available. DCP- Discharge Planning Updated by [email or web address]: Mariel Sarmiento on 12/08/19 9:[address] Met with patient regarding dc plans. Patient request CM contact #1 [facility], #2 [facility], #3 [facility] for his rehab. Faxed information to [facility] and spoke with Ajay. Coverage Notice Reviewer: [id number] John Sarmiento Notice Issued Date-Time: 12/08/2019 11:46 Notice Type: Patient Choice Letter Notice Delivered To: Patient Relationship to Patient: Self Carpentry Professional Name: Lucila Stern Delivery Method: HAND - Hand Delivered Tiana Days: Prior Verbal Notification: Recipient Understood Notice: Yes Recipient Signature: Yes Med Rec Note Co-signed by Attending: Coverage Notice Comment: Patient choice for Rehab services signed. Original given to patient and one placed on the chart. Last DP export: 12/08/19 11:07 a Patient Name: LUCILA STERN Page 12626 at 1442 All edits/amendments must be made on the electronic document DICTATION DATE: 12/08/19 1442 TODDLER TEACHER: FRANCIS 12/08/19 1442 RPT#: [id number] DC DATE: STATUS: ADM IN [facility] [address] [place] [address] END OF REPORT
--- NOTE | 2019-12-08 16:20 | MORECARE ---
CASE MANAGEMENT DISCHARGE SUMMARY PATIENT: LUCILA STERN UNIT: [id number] ADM DATE: 12/07/19 AGE: 64 : 59 SEX: M ROOM/BED: D.1212 AUTHOR: ROSS CHRISTOPHER PHYSICIAN: REFERRING PHYSICIAN: LATOSHA MENDOZA MD DATE OF SERVICE: 12/08/19 Discharge Plan Patient Name: LUCILA STERN Facility: [facility]:[place] : 1955 Planned Disposition: Anticipated Discharge Date: Discharge Date: Expected LOS: Initial Reviewer: [email or web address] Initial Review Date: 12/07/2019 Generated: 12/08/19 5:20 pm Comments DCP- Discharge Planning Updated by [email or web address]: Mariel Sarmiento on 12/08/19 1:[address] CM met with patient to discuss initial discharge planning. Patient is in agreement to proceed with the assessment. Patient reports that he lives at home totally dependent on his spouse for care over the past 6 months, due to his Parkinson's symptoms. Patient is alert/oriented. PCP: Dr. Szymanski ([place]). Pharmacy: [facility] Patient states they have been able to obtain all of their prescribed medications. HHS: No. DME: Manual W/C, Walker (uses w/c mostly). Patient gives permission to speak with family members/care givers. Emergency contact: Sherine Treadwell () [phone]. Patient is CM discussed the availability of HH, Rehab, DME services. Patient request Rehab at [place], [facility] or [facility] upon dc. Patient denies being hospitalized within the past 30 days. 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 Transportation at time of discharge: Facility. CM will assist with dc needs/plans PRN. Appended by Mariel Sarmiento on 12/08/2019 14:42 SIGNALING DESIGN ENGINEER: Phone call from Ajay, with [facility] and she states the patient does not have any skilled days available. DCP- Discharge Planning Updated by [id number]: Mariel Sarmiento on 12/08/19 9:[address] Met with patient regarding dc plans. Patient request CM contact #1 [facility], #2 [facility], #3 [facility] for his rehab. Faxed information to [facility] and spoke with Ajay. Coverage Notice Reviewer: [id number] John Sarmiento Notice Issued Date-Time: 12/08/2019 11:46 Notice Type: Patient Choice Letter Notice Delivered To: Patient Relationship to Patient: Self Ct Tech Name: Lucila Stern Delivery Method: HAND - Hand Delivered Tiana Days: Prior Verbal Notification: Recipient Understood Notice: Yes Recipient Signature: Yes Med Rec Note Co-signed by Attending: Coverage Notice Comment: Patient choice for Rehab services signed. Original given to patient and one placed on the chart. Last DP export: 12/08/19 1:42 p Patient Name: LUCILA STERN Page 15804 at 1620 All edits/amendments must be made on the electronic document DICTATION DATE: 12/08/19 1620 POULTRY AND FISH BUTCHER: FRANCIS 12/08/19 1620 RPT#: [id number] DC DATE: STATUS: [facility] [address] [place] [address] END OF REPORT
--- NOTE | 2019-12-08 20:49 | NUR ---
PATIENT RESTING IN BED WITH EYES CLOSED AND NO S/S OF DISTRESS. SLING IN PLACE TO LEFT ARM AND SCDS ON. BED IN LOWEST POSITION AND CALL LIGHT WITHIN REACH. WILL CONTINUE TO MONITOR.
--- NOTE | 2019-12-08 22:02 | NUR ---
PATIENT RESTING IN BED WITH NO S/S OF DISTRESS. ADMINISTERED MEDS PER ORDERS. EMPTIED 300ML FROM URINAL. GAVE PATIENT FRESH WATER PER HER REQUEST. PATIENT DENIES OTHER NEEDS AT THIS TIME. BED IN LOWEST POSITION AND CALL LIGHT WITHIN REACH. ENCOURAGED THE PATIENT TO CALL IF HE HAS NEEDS. WILL CONTINUE TO MONITOR.
--- NOTE | 2019-12-09 02:51 | NUR ---
PATIENT RESTING IN WITH EYES CLOSED AND NO S/S OF DISTRESS. BED IN LOWEST POSITION AND CALL LIGHT WITHIN REACH. WILL CONTINUE TO MONITOR.
[2019-12-09 04:02] VITALS: BP 104/69
[2019-12-09 08:04] VITALS: BP 124/65
[2019-12-09 08:56] LABS: HEMATOCRIT 37.1 % (42.0-54.0); HEMOGLOBIN 12.6 g/dL (13.5-17.5); MCH 30.1 pg (26.0-34.0); MCV 88.5 fL (80.0-100.0); MEAN PLATELET VOLUME 10.2 fL (7.4-10.4); RBC 4.19 10x6/uL (4.20-6.10); RDW 13.2 % (11.5-14.5); WBC 7.8 10x3/uL (4.8-10.8)
--- NOTE | 2019-12-09 08:58 | NUR ---
(Late Entry from 12/08/2019) Rehab Note- Acute Inpatient Rehab prescreen order received. The patient has [employer] insurance and will require a PreAuth. A PreAuth was started on 12/08/2019 with clinicals faxed except for the OT Eval that hasn't been completed yet, will fax when avaliable. Have spoken with ALEX Floyd. Will follow at this time. Thank you for this referral! Sandie Joseph RN Clinical Liaison, [facility] Rehab
--- NOTE | 2019-12-09 10:43 | NUR ---
PT ALERT X 4. BREATH SOUNDS CLEAR BILAT. IV TO RIGHT HAND PATENT, DRESSING CDI. BOWEL SOUNDS HYPO X 4. WOUND VAC TO LEFT SHOULDER, NO OUTPUT, SLING IN PLACE. PT REPORTING PAIN OF 4/10, MEDICATED PER ORDERS, WILL MONITOR. SCD'S IN USE. BED LOW, CALL LIGHT IN REACH. NO OTHER NEEDS AT THIS TIME.
--- NOTE | 2019-12-09 14:17 | MORECARE ---
CASE MANAGEMENT DISCHARGE SUMMARY PATIENT: LUCILA STERN UNIT: [id number] ADM DATE: 12/07/19 AGE: 64 : 59 SEX: M ROOM/BED: D.1212 AUTHOR: ROSS CHRISTOPHER PHYSICIAN: REFERRING PHYSICIAN: LATOSHA MENDOZA MD DATE OF SERVICE: 12/09/19 Discharge Plan Patient Name: LUCILA STERN Facility: [facility]:[place] : 1955 Planned Disposition: Anticipated Discharge Date: Discharge Date: Expected LOS: Initial Reviewer: [email or web address] Initial Review Date: 12/07/2019 Generated: 12/09/19 3:17 pm Comments DCP- Discharge Planning Updated by [email or web address]: Mariel Sarmiento on 12/08/19 1:[address] CM met with patient to discuss initial discharge planning. Patient is in agreement to proceed with the assessment. Patient reports that he lives at home totally dependent on his spouse for care over the past 6 months, due to his Parkinson's symptoms. Patient is alert/oriented. PCP: Dr. Szymanski ([place]). Pharmacy: [facility]. Patient states they have been able to obtain all of their prescribed medications. HHS: No. DME: Manual W/C, Walker (uses w/c mostly). Patient gives permission to speak with family members/care givers. Emergency contact: Sherine Treadwell () [phone]. Patient is CM discussed the availability of HH, Rehab, DME services. Patient request Rehab at [place], [facility] or [facility] upon dc. Patient denies being hospitalized within the past 30 days. 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 Transportation at time of discharge: Facility. CM will assist with dc needs/plans PRN. Appended by Mariel Sarmiento on 12/08/2019 14:42 FLOORING SALES MANAGER: Phone call from Ajay, with [facility] and she states the patient does not have any skilled days available. DCP- Discharge Planning Updated by [email or web address]: Mariel Sarmiento on 12/08/19 9:[address] Met with patient regarding dc plans. Patient request CM contact #1 [facility], #2 [facility], #3 [facility] for his rehab. Faxed information to [facility] and spoke with Ajay. Coverage Notice Reviewer: [id number] John Sarmiento Notice Issued Date-Time: 12/08/2019 11:46 Notice Type: Patient Choice Letter Notice Delivered To: Patient Relationship to Patient: Self Metal Tile Lather Name: Lucila Stern Delivery Method: HAND - Hand Delivered Tiana Days: Prior Verbal Notification: Recipient Understood Notice: Yes Recipient Signature: Yes Med Rec Note Co-signed by Attending: Coverage Notice Comment: Patient choice for Rehab services signed. Original given to patient and one placed on the chart. Last DP export: 12/08/19 3:20 p Patient Name: LUCILA STERN Page 21120 at 1417 All edits/amendments must be made on the electronic document DICTATION DATE: 12/09/19 1416 CUTTER FIRST: FRANCIS 12/09/19 1416 RPT#: [id number] DC DATE: STATUS: ADM IN [facility] [address] [place] [address] END OF REPORT
--- NOTE | 2019-12-09 16:23 | NUR ---
OT NOTE: PT COMPLETED BED MOB WITH WITH MIN A. PT COMPLETED EOB SITTING WITH SBA. PT COMPLETED LB HYGIENE TASKS WITH MOD/MAX A. 1-132 THANK YOU,ERNESTO AVALOS
[2019-12-09 19:56] VITALS: BP 124/72
--- NOTE | 2019-12-09 20:00 | NUR ---
ALERT SITING UP IN BED, DENIES PAIN OR NEEDS AT THIS TIME, SLING IN USE TO LEFT SHOULDER, SEE SHIFT ASSESSMENT, CALL LIGHT IN REACH
[2019-12-10 00:04] VITALS: BP 124/75
[2019-12-10 04:30] VITALS: BP 113/69
[2019-12-10 07:49] VITALS: BP 122/69
--- NOTE | 2019-12-10 08:22 | MORECARE ---
CASE MANAGEMENT DISCHARGE SUMMARY PATIENT: LUCILA STERN UNIT: [id number] ADM DATE: 12/07/19 AGE: 64 : 59 SEX: M ROOM/BED: D.1212 AUTHOR: ROSS CHRISTOPHER PHYSICIAN: REFERRING PHYSICIAN: LATOSHA MENDOZA MD DATE OF SERVICE: 12/10/19 Discharge Plan Patient Name: LUCILA STERN Facility: [facility]:[place] : 1955 Planned Disposition: Anticipated Discharge Date: Discharge Date: Expected LOS: Initial Reviewer: [id number] Initial Review Date: 12/07/2019 Generated: 12/10/19 9:22 am Comments DCP- Discharge Planning Updated by [email or web address]: Mariel Sarmiento on 12/08/19 1:[address] CM met with patient to discuss initial discharge planning. Patient is in agreement to proceed with the assessment. Patient reports that he lives at home totally dependent on his spouse for care over the past 6 months, due to his Parkinson's symptoms. Patient is alert/oriented. PCP: Dr. Szymanski ([place]). Pharmacy: [facility]. Patient states they have been able to obtain all of their prescribed medications. HHS: No. DME: Manual W/C, Walker (uses w/c mostly). Patient gives permission to speak with family members/care givers. Emergency contact: Sherine Treadwell () [phone]. Patient is CM discussed the availability of HH, Rehab, DME services. Patient request Rehab at [facility], [facility] or [facility] upon dc. Patient denies being hospitalized within the past 30 days. Patient denies the use of community resources AIR SAMPLING AND MONITORING. Transportation at time of discharge: Facility. CM will assist with dc needs/plans PRN. Appended by Mariel Sarmiento on 12/08/2019 14:42 CORD TIRE BUILDER: Phone call from Ajay, with [facility] and she states the patient does not have any skilled days available. DCP- Discharge Planning Updated by [id number]: Mariel Sarmiento on 12/08/19 9:[address] Met with patient regarding dc plans. Patient request CM contact #1 [facility], #2 [facility], #3 [facility] for his rehab. Faxed information to [facility] and spoke with Ajay. Coverage Notice Reviewer: [id number] John Sarmiento Notice Issued Date-Time: 12/08/2019 11:46 Notice Type: Patient Choice Letter Notice Delivered To: Patient Relationship to Patient: Self Mobile Application Engineer Name: Lucila Stern Delivery Method: HAND - Hand Delivered Tiana Days: Prior Verbal Notification: Recipient Understood Notice: Yes Recipient Signature: Yes Med Rec Note Co-signed by Attending: Coverage Notice Comment: Patient choice for Rehab services signed. Original given to patient and one placed on the chart. Last DP export: 12/09/19 1:17 p Patient Name: LUCILA STERN Page 47340 at 0822 All edits/amendments must be made on the electronic document DICTATION DATE: 12/10/19821 FRANCHISE SPECIALIST: FRANCIS 12/10/19821 RPT#: [id number] DC DATE: STATUS: ADM IN [facility] [address] [place] [address] END OF REPORT
--- NOTE | 2019-12-10 09:14 | NUR ---
PT ALERT X 4. BREATH SOUNDS CLEAR BILAT. IV TO RIGHT HAND, SALINE LOCKED. SLING TO LEFT ARM, WOUND VAC IN PLACE, NO OUTPUT. PT REPORTING PAIN OF 3/10, WILL MONITOR. SCD'S IN USE. BED LOW, CALL LIGHT IN REACH. NO OTHER NEEDS AT THIS TIME.
[2019-12-10 11:50] VITALS: BP 126/77
[2019-12-10 16:52] VITALS: BP 126/75
--- NOTE | 2019-12-10 16:53 | NUR ---
IV TO RIGHT HAND DC'D, TIP INTACT.
--- NOTE | 2019-12-10 17:03 | NUR ---
Rehab Note- Received call from Ghazal Elkins approving the patient for an inpatient acute rehab stay. Spoke with ALEX Lockwood. Will accept the patient to [facility] Acute Inpatient Rehab tomorrow. THank you for this referral! Sandie Joseph RN Clinical Liaison, [facility] Rehab
--- NOTE | 2019-12-10 17:10 | MORECARE ---
CASE MANAGEMENT DISCHARGE SUMMARY PATIENT: LUCILA STERN UNIT: [id number] ADM DATE: 12/07/19 AGE: 64 : 59 SEX: M ROOM/BED: D.1212 AUTHOR: CANDI,DOC PHYSICIAN: REFERRING PHYSICIAN: LATOSHA MENDOZA MD DATE OF SERVICE: 12/10/19 Discharge Plan Patient Name: LUCILA STERN Facility: [facility]:[place] : 1955 Planned Disposition: Anticipated Discharge Date: Discharge Date: Expected LOS: Initial Reviewer: [id number] Initial Review Date: 12/07/2019 Generated: 12/10/19 6:10 pm Comments DCP- Discharge Planning Updated by [email or web address]: Mandie Genao on 12/10/19 4:[address] Received call from Sandie in Rehab who stated they received auth from [employer]. She stated they can accept the patient Saturday12/10/2019. Mandie Genao RN, [facility] DCP- Discharge Planning Updated by [email or web address]: Mariel Sarmiento on 12/08/19 1:[address] CM met with patient to discuss initial discharge planning. Patient is in agreement to proceed with the assessment. Patient reports that he lives at home totally dependent on his spouse for care over the past 6 months, due to his Parkinson's symptoms. Patient is alert/oriented. PCP: Dr. Szymanski ([place]). [facility] Patient states they have been able to obtain all of their prescribed medications. HHS: No. DME: Manual W/C, Walker (uses w/c mostly). Patient gives permission to speak with family members/care givers. Emergency contact: Sherine Treadwell () [phone]. Patient is CM discussed the availability of HH, Rehab, DME services. Patient request Rehab at [place], [facility] or [facility] upon dc. Patient denies being hospitalized within the past 30 days. 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 Transportation at time of discharge: Facility. CM will assist with dc needs/plans PRN. Appended by Mariel Sarmiento on 12/08/2019 14:42 NURSE PLASTICS: Phone call from Ajay with [facility] and she states the patient does not have any skilled days available. DCP- Discharge Planning Updated by [email or web address]: Mariel Sarmiento on 12/08/19 9:[address] Met with patient regarding dc plans. Patient request CM contact [facility]1 [facility], [facility]2 [facility], [facility] Faxed information to [facility] and spoke with Ajay. Coverage Notice Reviewer: [id number] - Mariel Sarmiento Notice Issued Date-Time: 12/08/2019 11:46 Notice Type: Patient Choice Letter Notice Delivered To: Patient Relationship to Patient: Self Diet Assistant Name: Lucila Stern Delivery Method: HAND - Hand Delivered Tiana Days: Prior Verbal Notification: Recipient Understood Notice: Yes Recipient Signature: Yes Med Rec Note Co-signed by Attending: Coverage Notice Comment: Patient choice for Rehab services signed. Original given to patient and one placed on the chart. Last DP export: 12/10/19 7:22 a Patient Name: LUCILA STERN Page 10494 at 1710 All edits/amendments must be made on the electronic document DICTATION DATE: 12/10/191709 LAP CHECKER: FRANCIS 12/10/191709 RPT#: [id number] DC DATE: STATUS: ADM IN [facility] [address] [place] [address] END OF REPORT
--- NOTE | 2019-12-10 20:00 | NUR ---
ALERT SITTING UP IN BED SLING INPLACE TO LEFT ARM, DENIES PAIN OR NEEDS AT THSI TIME, CALL LIGHT IN REACH
[2019-12-10 20:42] VITALS: BP 131/69
[2019-12-11 00:33] VITALS: BP 119/72
[2019-12-11 04:39] VITALS: BP 117/76
[2019-12-11 07:17] VITALS: BP 119/60
--- NOTE | 2019-12-11 07:20 | NUR ---
PT RESTING IN BED WATCHING TV. HOB ELEVATED. LEFT UPPER EXTREMITY WITH SLING IN PLACE. PREVENA DRESSING INTACT TO LEFT SHOULDER. SCANT DRAINAGE NOTED FROM PREVENA. PT REPORTS PAIN 7/10 AT THIS TIME. PRESCRIBED PAIN MEDICATION TO BE ADMINISTERED PER MD ORDERS. SCD'S IN PLACE BILATERALLY. DENIES FURTHER NEEDS AT THIS TIME. CL WITHIN REACH. ENCOURAGED TO CALL WITH NEEDS. CONTINUE POC
[2019-12-11 07:23] VITALS: BP 125/68
--- NOTE | 2019-12-11 10:29 | NUR ---
NUTRITION F/U CHART REVIEWED. PT TOLERATING REG DIET WITH 100% INTAKE MOST MEALS. RECENT BM RECORDED. WILL CONTINUE TO PROVIDE DIET, HONOR FOOD PREFERENCES. RD FOLLOWING
[2019-12-11 11:20] VITALS: BP 124/79
--- NOTE | 2019-12-11 11:30 | MORECARE ---
CASE MANAGEMENT DISCHARGE SUMMARY PATIENT: LUCILA STERN UNIT: [id number] ADM DATE: 12/07/19 AGE: 64 : 59 SEX: M ROOM/BED: D.1212 AUTHOR: CANDI,DOC PHYSICIAN: REFERRING PHYSICIAN: LATOSHA MENDOZA MD DATE OF SERVICE: 12/11/19 Discharge Plan Patient Name: LUCILA STERN Facility: [facility]:[place] : 1955 Planned Disposition: Anticipated Discharge Date: Discharge Date: Expected LOS: Initial Reviewer: [email or web address] Initial Review Date: 12/07/2019 Generated: 12/11/19 12:29 pm Comments DCP- Discharge Planning Updated by [email or web address]: Mariel Sarmiento on 12/11/19 10:[address] Per Radha, Rehab will accept patient today. DCP- Discharge Planning Updated by [id number]: aMndie Genao on 12/10/19 4:[address] Received call from Sandie in Rehab who stated they received auth from [facility] [employer] [facility]. She stated they can accept the patient Saturday12/10/2019. Mandie Genao RN, [facility] DCP- Discharge Planning Updated by [id number]: Mariel Sarmiento on 12/08/19 1:[address] CM met with patient to discuss initial discharge planning. Patient is in agreement to proceed with the assessment. Patient reports that he lives at home totally dependent on his spouse for care over the past 6 months, due to his Parkinson's symptoms. Patient is alert/oriented. PCP: Dr. Szymanski ([place]). Pharmacy: [facility] Patient states they have been able to obtain all of their prescribed medications. HHS: No. DME: Manual W/C, Walker (uses w/c mostly). Patient gives permission to speak with family members/care givers. Emergency contact: Sherine Treadwell () [phone]. Patient is CM discussed the availability of HH, Rehab, DME services. Patient request Rehab at [facility], [facility] or [facility] upon dc. Patient denies being hospitalized within the past 30 days. Patient denies the use of community resources ENDOCRINOLOGY TEACHER. Transportation at time of discharge: Facility. CM will assist with dc needs/plans PRN. Appended by Mariel Sarmiento on 12/08/2019 14:42 ORTHOPEDIC SHOE FITTER: Phone call from Ajay, with [facility] and she states the patient does not have any skilled days available. DCP- Discharge Planning Updated by [id number]: Mariel Sarmiento on 12/08/19 9:[address] Met with patient regarding dc plans. Patient request CM contact #1 [facility], #2 [facility], #3 [facility] for his rehab. Faxed information to [facility] and spoke with Ajay. Coverage Notice Reviewer: [id number] - Mariel Sarmiento Notice Issued Date-Time: 12/08/2019 11:46 Notice Type: Patient Choice Letter Notice Delivered To: Patient Relationship to Patient: Self Automation Qa Lead Name: Lucila Stern Delivery Method: HAND - Hand Delivered Tiana Days: Prior Verbal Notification: Recipient Understood Notice: Yes Recipient Signature: Yes Med Rec Note Co-signed by Attending: Coverage Notice Comment: Patient choice for Rehab services signed. Original given to patient and one placed on the chart. Last DP export: 12/10/19 4:10 p Patient Name: LUCILA STERN Page [id number] at 1130 All edits/amendments must be made on the electronic document DICTATION DATE: 12/11/191128 LOT TECHNICIAN: FRANCIS 12/11/19 112 RPT#: [id number] DC DATE: STATUS: ADM IN [facility] [address] [place] [address] END OF REPORT
--- NOTE | 2019-12-11 14:25 | NUR ---
REPORT CALLED TO MARY IN REHAB. DISCUSSED WOUND CARE, MEDICATIONS AND PREVENA WITH NURSE. DISCUSSED DISCHARGE PAPER WORK WITH PT, AND TRANSFER TO REHAB. DISCUSSED MEDICATIONS TO BE CONTINUED AT THIS TIME. DISCUSSED WOUND CARE DIRECTIONS WITH PT. PT VOICES UNDERSTANDING, DENYING ANY QUESTIONS AT THIS TIME.
--- NOTE | 2019-12-11 15:16 | NUR ---
PT DISCHARGED AND TRANSFERRED TO REHAB 1108[facility] VIA W/C WITH ALL PERSONAL BELONGINGS.
--- NOTE | 2019-12-12 09:16 | MORECARE ---
CASE MANAGEMENT DISCHARGE SUMMARY PATIENT: LUCILA STERN UNIT: [id number] ADM DATE: 12/07/19 AGE: 64 : 59 SEX: M ROOM/BED: D.1212 AUTHOR: CANDI,DOC PHYSICIAN: REFERRING PHYSICIAN: LATOSHA MENDOZA MD DATE OF SERVICE: 12/12/19 Discharge Plan Patient Name: LUCILA STERN Facility: [facility]:[place] : 1955 Planned Disposition: Anticipated Discharge Date: Discharge Date: 12/11/2019 Expected LOS: Initial Reviewer: [email or web address] Initial Review Date: 12/07/2019 Generated: 12/12/19 10:16 am Comments DCP- Discharge Planning Updated by [email or web address]: Mariel Sarmiento on 12/11/19 10:[address] Per Radha, Rehab will accept patient today. DCP- Discharge Planning Updated by [email or web address]: Mandie Genao on 12/10/19 4:[address] Received call from Sandie in Rehab who stated they received auth from [facility]. She stated they can accept the patient Saturday12/10/2019. Mandie Genao RN, [facility] DCP- Discharge Planning Updated by [id number]: Mariel Sarmiento on 12/08/19 1:[address] CM met with patient to discuss initial discharge planning. Patient is in agreement to proceed with the assessment. Patient reports that he lives at home totally dependent on his spouse for care over the past 6 months, due to his Parkinson's symptoms. Patient is alert/oriented. PCP: Dr. Szymanski ([place]). Pharmacy: [facility]. Patient states they have been able to obtain all of their prescribed medications. HHS: No. DME: Manual W/C, Walker (uses w/c mostly). Patient gives permission to speak with family members/care givers. Emergency contact: Sherine Treadwell () [phone]. Patient is CM discussed the availability of HH, Rehab, DME services. Patient request Rehab at [facility], [facility] or [facility] upon dc. Patient denies being hospitalized within the past 30 days. Patient denies the use of community resources ONLINE MARKETING STRATEGIST. Transportation at time of discharge: Facility. CM will assist with dc needs/plans PRN. Appended by Mariel Sarmiento on 12/08/2019 14:42 CLAM GROWER: Phone call from Ajay, with [facility] and she states the patient does not have any skilled days available. DCP- Discharge Planning Updated by [id number]: Mariel Sarmiento on 12/08/19 9:[address] Met with patient regarding dc plans. Patient request CM contact #1 [facility], #2 [facility], #3 [facility] for his rehab. Faxed information to [facility] and spoke with Ajay. Coverage Notice Reviewer: [id number] - Mariel Sarmiento Notice Issued Date-Time: 12/08/2019 11:46 Notice Type: Patient Choice Letter Notice Delivered To: Patient Relationship to Patient: Self Burner Operator Name: Lucila Stern Delivery Method: HAND - Hand Delivered Tiana Days: Prior Verbal Notification: Recipient Understood Notice: Yes Recipient Signature: Yes Med Rec Note Co-signed by Attending: Coverage Notice Comment: Patient choice for Rehab services signed. Original given to patient and one placed on the chart. Last DP export: 12/11/19 10:30 a Patient Name: LUCILA STERN Page [id number] at 0916 All edits/amendments must be made on the electronic document DICTATION DATE: 12/12/19915 SUPERVISOR FRONT: FRANCIS 12/12/19915 RPT#: [id number] DC DATE:12/11/19 STATUS: DIS IN [facility] [address] [place] [address] END OF REPORT
== END 2019-12-11 15:16 | DRG 483 ==
LOC: D.SDCHOLD 12-07 10:38 → D.M3 12-07 10:38 → D.M2 12-07 12:30 → D.SDCHOLD 12-07 12:30 → D.M2 12-07 12:45 → D.M3 12-07 15:47
PROVIDERS: ADMIT Orthopaedic Surgery; ATTEND Orthopaedic Surgery
PROC: 0RPK0JZ Removal of Synthetic Substitute from Left Shoulder Joint, Open Approach (ICD-10-PCS; 2019-12-07)
PROC: 0RRK00Z Replacement of Left Shoulder Joint with Reverse Ball and Socket Synthetic Substitute, Open Approach (ICD-10-PCS; principal; 2019-12-07 12:30)
DX: T84.028A Dislocation of other internal joint prosthesis, initial encounter (principal); Y84.9 Medical procedure, unspecified as the cause of abnormal reaction of the patient, or of later complication, without mention of misadventure at the time of the procedure; S52.122A Displaced fracture of head of left radius, initial encounter for closed fracture; W19.XXXA Unspecified fall, initial encounter; G20 Parkinson's disease; I10 Essential (primary) hypertension; Z87.891 Personal history of nicotine dependence

== ENCOUNTER 2019-12-11 14:29 | Inpatient (IN) | payer BC ==
[~2019-12-11] VITALS: Ht 182.9 cm; Wt 113.4 kg
[2019-12-11 17:17] VITALS: BP 115/82; BMI 34.0
--- NOTE | 2019-12-11 20:00 | NUR ---
AWAKE AND ALERT. RESTING IN BED WITH RESPRIATIONS UNLABORED. LEFT ARM/SHOULDER SLING IN PLACE. HX OF PARKINSON'S DISEASE. SPEECH GARBLED AT TIMES. NO ACUTE DISTRESS NOTED. CALL LIGHT IN REACH.
[2019-12-11 21:50] VITALS: BP 115/82
--- NOTE | 2019-12-12 00:15 | NUR ---
RESTING IN BED WITH NO DISTRESS NOTED. CALL LIGHT IN REACH.
--- NOTE | 2019-12-12 03:28 | NUR ---
CONTINUES SLEEPING WITH RESPIRATIONS UNLABORED. NO ACUTE DISTRESS NOTED. CALL LIGHT IN REACH.
--- NOTE | 2019-12-12 05:18 | NUR ---
QUIET HOURS. NO ACUTE CHANGES IN CONDITION THIS SHIFT. RESTING IN BED WITH NO DISTRESS NOTED. CALL LIGHT IN REACH.
[2019-12-12 06:59] LABS: BASOPHILS 0.3 % (0-2); EOSINOPHILS 3.6 % (0-7); HEMATOCRIT 32.4 % (42.0-54.0); HEMOGLOBIN 10.8 g/dL (13.5-17.5); IMMATURE GRANULOCYTES 0.3 % (0-5); MCH 29.8 pg (26.0-34.0); MCHC 33.3 g/dL (31.0-37.0); MCV 89.3 fL (80.0-100.0); MONOCYTES 7.9 % (2-11); NEUTROPHILS 70.9 % (40-80); PLATELET COUNT 210 10x3/uL (130-400); RBC 3.63 10x6/uL (4.20-6.10); WBC 6.1 10x3/uL (4.8-10.8)
[2019-12-12 07:00] VITALS: BP 116/69
[2019-12-12 07:05] LABS: ANION GAP 10.6 mmol/L (8-16); CALCIUM 8.6 mg/dL (8.5-10.1); CARBON DIOXIDE 27.6 mmol/L (21.0-32.0); CREATININE - SERUM 1.1 mg/dL (0.6-1.3); POTASSIUM - SERUM 4.2 mmol/L (3.5-5.1)
[2019-12-12 09:42] VITALS: Ht 182.9 cm; Wt 113.4 kg
--- NOTE | 2019-12-12 09:51 | NUR ---
PT AM MEDS ADMINISTERED. PT PRN PAIN MEDICATION GIVEN FOR 7/10 PAIN TO INCISION. WCTM.
[2019-12-12 19:32] VITALS: BP 127/78
--- NOTE | 2019-12-12 19:42 | NUR ---
AWAKE AND ALERT. RESTING IN BED WITH RESPIRATIONS UNLABORED. SLING IN PLACE TO LEFT ARM. WOUND VAC IN PLACE. TALKING WITH VISITOR. NO ACUTE DISTRESS NOTED. REQUEST SOMETHING FOR PAIN.
--- NOTE | 2019-12-13 01:40 | NUR ---
RESTING IN BED WITH RESPIRAITONS UNLABORED. NO DISTRESS NOTED.
--- NOTE | 2019-12-13 05:06 | NUR ---
QUIET HOURS. NO ACUTE CHANGES IN CONDITION THIS SHIFT. RESTING IN BED WITH NO DISTRESS NOTED. WOUND VAC IN PLACE.
--- NOTE | 2019-12-13 08:07 | NUR ---
PT SITTING UP IN BED EATING BREAKFAST, DENIES NEEDS. WCTM.
[2019-12-13 10:08] VITALS: BP 143/78
[2019-12-13 19:27] VITALS: BP 127/76
--- NOTE | 2019-12-13 19:30 | NUR ---
AWAKE AND ALERT. RESTING IN BED WITH RESPIRATIONS UNLABORED. LEFT ARM IN SLING. WOUND VAC IN PLACE. NO ACUTE DISTRESS NOTED. CALL LIGHT IN REACH.
--- NOTE | 2019-12-14 01:03 | NUR ---
CONTINUES RESTING IN BED WITH NO DISTRESS NOTED.
--- NOTE | 2019-12-14 03:01 | NUR ---
CONTINUES SLEEPING WITH RESPIRAITONS UNLABORED. NO DISTRESS NOTED. CALL LIGHT IN REACH.
--- NOTE | 2019-12-14 04:57 | NUR ---
QUEIT HOURS. NO ACUTE CHANGES IN CONDITION THIS SHIFT. RESTING IN BED WITH NO DISTRESS NOTED. WOUND VAC IN PLACE. CALL LIGHT IN REACH.
[2019-12-14 07:08] LABS: BASOPHILS 0.4 % (0-2); EOSINOPHILS 3.5 % (0-7); HEMATOCRIT 35.3 % (42.0-54.0); HEMOGLOBIN 11.9 g/dL (13.5-17.5); IMMATURE GRANULOCYTES 0.6 % (0-5); LYMPHOCYTES 20.1 % (15-50); MCH 29.8 pg (26.0-34.0); MCHC 33.7 g/dL (31.0-37.0); MCV 88.3 fL (80.0-100.0); MONOCYTES 6.6 % (2-11); NEUTROPHILS 68.8 % (40-80); RDW 12.9 % (11.5-14.5); WBC 6.8 10x3/uL (4.8-10.8)
[2019-12-14 07:13] LABS: PLATELET COUNT 281 10x3/uL (130-400)
[2019-12-14 07:26] LABS: CALC OSMOLALITY 283 mosm/kg (275-300); CALCIUM 8.8 mg/dL (8.5-10.1); CARBON DIOXIDE 26.6 mmol/L (21.0-32.0); CHLORIDE - SERUM 108 mmol/L (98-107); GLUCOSE 107 mg/dL (74-106); SODIUM 142 mmol/L (136-145); UREA NITROGEN 16 mg/dL (7-18); eGFR NON AFRICAN AMERICAN 80 mL/min (90-120)
--- NOTE | 2019-12-14 07:34 | NUR ---
ALERT AND ORIENTED. NO DISTRESS NOTED. RESP EVEN AND UNLABORED. CL IN REACH.
[2019-12-14 08:14] VITALS: BP 137/89
--- NOTE | 2019-12-14 13:18 | NUR ---
PARTICIPATED IN THERAPY. NO DISTRESS NOTED. VISITOR IN ROOM.
--- NOTE | 2019-12-14 15:49 | NUR ---
NO CHANGE IN ASSESSEMENT. NO C/O PAIN. RESTING IN BED. CL IN REACH.
--- NOTE | 2019-12-14 19:12 | NUR ---
PT SITTING UP IN BED WATCHING TV. CL IN REACH. DENIES NEEDS OR PAIN AT THIS TIME. BED IN LOW SIDE RAILS X2. LUNGS CLEAR. BOWEL ACTIVE X4. A/O X4. RESP EVEN AND UNLABORED. WILL CONTINUE TO MONITOR.
[2019-12-14 20:52] VITALS: BP 116/76
--- NOTE | 2019-12-15 00:18 | NUR ---
I have reviewed this patient and I concur with the Shift Assessment completed by the Licensed Practical Nurse today this shift.
[2019-12-15 07:52] VITALS: BP 111/78
--- NOTE | 2019-12-15 09:23 | NUR ---
PATIENT IS ALERT/ORIENT. CALL LIGHT WITHIN REACH. VOICES NO NEEDS AT THIS TIME. WILL CONTINUE WITH PLAN OF CARE
--- NOTE | 2019-12-15 11:21 | NUR ---
NURSE ASST. HELPED PATIENT WITH A SHOWER
--- NOTE | 2019-12-15 12:07 | NUR ---
PATIENT ADMITTED TO REHABF ROM ACUTE FLOOR. HIS P[place] DR. SAM ([place]). DME AT HOME IS A WALKER AND A WHEELCHAIR . IF PATIENT UNABLE TO RETURN HOME HE WOULD LIKE A REFERRAL TO [facility] OR [facility]. WILL CONTINUE TO FOLLOW WITH PATIENT.
--- NOTE | 2019-12-15 13:06 | NUR ---
Nutrition Follow-up: Diet: Regular PO intake: 75-100% x all meals; reports good appetite Last BM: 12/13/19. WT: 250# (12/12/19) Meds and labs reviewed. Recommend continue current diet. RD following.
--- NOTE | 2019-12-15 15:39 | NUR ---
WOUND CONSULT PUT IN FOR WOUND VAC
--- NOTE | 2019-12-15 19:15 | NUR ---
PT SITTING UP IN BED. CL IN REACH. DENIES NEEDS OR PAIN AT THIS TIME. BED IN LOW SIDE RAILS X2. RESP EVEN AND UNLABORED. A/O X4. LUNGS CLEAR. BOWEL ACTIVE X4. WILL CONTINUE TO MONITOR.
[2019-12-15 21:04] VITALS: BP 122/74
--- NOTE | 2019-12-16 04:01 | NUR ---
I have reviewed this patient and I concur with the Shift Assessment completed by the Licensed Practical Nurse today this shift.
[2019-12-16 06:21] LABS: BASOPHILS 0.7 % (0-2); HEMATOCRIT 37.2 % (42.0-54.0); HEMOGLOBIN 12.3 g/dL (13.5-17.5); IMMATURE GRANULOCYTES 0.8 % (0-5); MCH 29.8 pg (26.0-34.0); MCHC 33.1 g/dL (31.0-37.0); MCV 90.1 fL (80.0-100.0); MEAN PLATELET VOLUME 9.8 fL (7.4-10.4); MONOCYTES 6.6 % (2-11); NEUTROPHILS 70.9 % (40-80); PLATELET COUNT 337 10x3/uL (130-400); RBC 4.13 10x6/uL (4.20-6.10); WBC 8.2 10x3/uL (4.8-10.8)
[2019-12-16 06:58] LABS: CALC OSMOLALITY 287 mosm/kg (275-300); CARBON DIOXIDE 25.8 mmol/L (21.0-32.0); CHLORIDE - SERUM 108 mmol/L (98-107); GLUCOSE 117 mg/dL (74-106); POTASSIUM - SERUM 3.9 mmol/L (3.5-5.1); SODIUM 143 mmol/L (136-145); UREA NITROGEN 17 mg/dL (7-18); eGFR NON AFRICAN AMERICAN 80 mL/min (90-120)
[2019-12-16 07:57] VITALS: BP 125/80
--- NOTE | 2019-12-16 09:21 | NUR ---
PATIENT IS ALERT/ORIENT. CALL LIGHT WITHIN REACH. VOICES NO NEEDS AT THIS TIME. WILL CONTINUE WITH PLAN OF CARE
--- NOTE | 2019-12-16 11:00 | NUR ---
PATIENT IN REHAB ROOM. WORKING WITH PHYSICAL THERAPIST. DENIES ANY PAIN/DISC AT THIS TIME.
--- NOTE | 2019-12-16 13:00 | NUR ---
PATIENT IS A STAND BY ASST FROM WHEELCHAIR TO BED.
--- NOTE | 2019-12-16 14:46 | NUR ---
PREVERA WOUND VAC REMOVED FROM LEFT SHOULDER WITHOUT DIFFICULTY. INCISION SITE COVERED WITH MEPILEX DRESSING.
--- NOTE | 2019-12-16 19:18 | NUR ---
PT SITTING UP IN BED WATCHING TV. CL IN REACH. DENIES NEEDS OR PAIN AT THIS TIME. BED IN LOW SIDE RAILS X2. A/O X4. LUNGS CLEAR. BOWEL ACTIVE X4. RESP EVEN AND UNLABORED. WILL CONTINUE TO MONITOR.
[2019-12-16 22:06] VITALS: BP 126/82
--- NOTE | 2019-12-17 00:59 | NUR ---
I have reviewed this patient and I concur with the Shift Assessment completed by the Licensed Practical Nurse today this shift.
--- NOTE | 2019-12-17 07:40 | NUR ---
SITTING UP IN BED WATCHING TV. DENIES ANY PAIN AT PRESENT TIME AND VOICES NO REQUESTS. DRESSING TO LEFT SHOULDER C/D/I AND INCISION RIGHT ELBOW HEALED. ASSESSMENT COMPLETED AND WILL CONTINUE POC. SIDERAILS UP X 2, BED IN LOW LOCKED POSITION AND CALL LIGHT IN REACH.
[2019-12-17 08:59] VITALS: BP 119/83
--- NOTE | 2019-12-17 10:00 | NUR ---
I have reviewed this patient and I concur with the Shift Assessment completed by the Licensed Practical Nurse today this shift.
--- NOTE | 2019-12-17 13:58 | NUR ---
REQUESTED SINEMET BE GIVEN TO HIM 45 MINUTES PRIOR TO PHYSICAL THERAPY. MED GIVEN.
--- NOTE | 2019-12-17 16:23 | NUR ---
CARE TEAM MEETING: PATIENT PROGRESSING IN THERAPY . TENATIVE DISCHARGE DATE IS 12/25/19. WILL CONTINUE TO FOLLOW WITH PATIENT.
--- NOTE | 2019-12-17 19:14 | NUR ---
INTRODUCEDS SELF TO PT, PT STATES WOULD LIKE HIS CLOTHES WASHED SOMETIME TONIGHT, BED IN LOW POSITION, SIDE RAILS UP X'S 2, CALL LIGHT WITHIN REACH, WILL CONTINUE TO MONITOR.
[2019-12-17 20:19] VITALS: BP 126/63
--- NOTE | 2019-12-17 21:46 | NUR ---
PT COMPLAINES OF PAIN IN LEFT SHOULDER AT A 7, PAIN MED GIVEN WITH HIS NIGHTLY MEDICATION, PT TOLERATED WELL, CALL LIGHT WITHIN REACH, WILL CONTINUE TO MONITOR.
--- NOTE | 2019-12-18 00:02 | NUR ---
PT RESTING IN BED, RESPIRATIONS EVEN, ROOM CLEARED OF CLUTTER, BED IN LOW POSITION, SIDE RAILS UP X'S 2, CALL LIGHT WITHIN REACH, WILL CONTINUE TO MONITOR.
--- NOTE | 2019-12-18 02:32 | NUR ---
PT RESTING QUIETLY, RESPIRATIONS EVEN, CALL LIGHT WITHIN REACH, WILL CONTINUE TO MONITOR.
--- NOTE | 2019-12-18 02:34 | NUR ---
I have reviewed this patient and I concur with the Shift Assessment completed by the Licensed Practical Nurse today this shift.
--- NOTE | 2019-12-18 05:44 | NUR ---
MORNING MEDICATION GIVEN, PT TOLERATED WELL, CALL LIGHT WITHIN REACH, WILL CONTINUE TO MONITOR.
[2019-12-18 06:42] LABS: BASOPHILS 0.4 % (0-2); HEMATOCRIT 37.3 % (42.0-54.0); HEMOGLOBIN 12.5 g/dL (13.5-17.5); IMMATURE GRANULOCYTES 1.1 % (0-5); LYMPHOCYTES 20.4 % (15-50); MCH 29.9 pg (26.0-34.0); MCHC 33.5 g/dL (31.0-37.0); MCV 89.2 fL (80.0-100.0); MEAN PLATELET VOLUME 9.7 fL (7.4-10.4); MONOCYTES 7.1 % (2-11); PLATELET COUNT 321 10x3/uL (130-400); RBC 4.18 10x6/uL (4.20-6.10); RDW 13.2 % (11.5-14.5)
[2019-12-18 06:53] LABS: ANION GAP 13.2 mmol/L (8-16); CARBON DIOXIDE 25.8 mmol/L (21.0-32.0); CREATININE - SERUM 1.1 mg/dL (0.6-1.3)
--- NOTE | 2019-12-18 08:31 | NUR ---
A/A/OX4. DENIES ANY PAIN OR DISCOMFORT AT PRESENT TIME AND VOICES NO REQUESTS. SITTING UP IN BED WATCHING TV. ASSESEMENT COMPLETED AND WILL CONTINUD POC. DRESSING TO LEFT SHOULDER C/D/I. WEARING SLING ORDERED. SIDERAILS UP X 2, BED IN LOW LOCKED POSITION AND CALL LIGHT IN REACH. RESP EVEN AND UNLABORED. NO APPARENT PROBLEMS AT THIS TIME.
[2019-12-18 11:25] VITALS: BP 115/79
--- NOTE | 2019-12-18 12:40 | NUR ---
CLINICAL UPDATES FAXED TO [facility] AT [phone], AUTH. # [id number] WITH CONFORMATION RECIEVED REQUESTING TENATIVE DISCHARGE BEING 12/28/2019. WILL CONTINUE TO FOLLOW WITH PATIENT.
--- NOTE | 2019-12-18 14:39 | NUR ---
RECIEVED CALL FROM TALYA FROM [facility], PATIENT HAS BEEN APPROVED THROUGHT THE NEXT CLINICAL UPDATE WHICH WILL BE 12/23/2019, AUTH. #[id number]. WILL CONTINUE TO FOLLOW WITH PATIENT.
--- NOTE | 2019-12-18 18:45 | NUR ---
BEDSIDE REPORT COMPLETE. PT SITTING UP IN BED WATCHING TV. ALERT AND ORIENTED X4. DENIES ANY NEEDS. LEFT SHOULDER INCISION WITHOUT REDNESS +1 EDEMA. 3/10 ACHING PAIN IN LT SHOULDER AND RT ELBOW. DEEP BRAIN STIMULATOR PACK LEFT CHEST. CL LIGHT WITHIN REACH. FALL PRECAUTIONS IN PLACE. WILL CONTINUE TO MONITOR
[2019-12-18 20:00] VITALS: BP 107/66
--- NOTE | 2019-12-18 23:07 | NUR ---
PT LYING IN BED EYES CLOSED RESTING. RR EVEN AND UNLABORED. CL IN REACH
[2019-12-19 00:36] VITALS: BP 107/66
--- NOTE | 2019-12-19 03:32 | NUR ---
PT LYING IN BED EYES CLOSED RESTING COMFORTABLY. NO SIGNS OF ACUTE DISTRESS NOTED. CL IN REACH
[2019-12-19 08:00] VITALS: BP 123/78
--- NOTE | 2019-12-19 09:51 | NUR ---
PATIENT IS ALERT/ORIENT. SITTING UP ON THE SIDE OF HIS BED. CALL LIGHT WITHIN REACH. VOICES NO NEEDS AT THIS TIME. WILL CONTINUE WITH PLAN OF CARE
--- NOTE | 2019-12-19 15:32 | NUR ---
PATIENT REFUSED SHOWER TODAY. STATES HIS LINENS ON BED WHERE CHANGED YESTERDAY. PATIENT STATED HE CAN TAKE HIS OWN SHOWER. THIS NURSE STATED IF HE WANTS TO TAKE A SHOWER TO LET HER KNOW AND SHE WILL SET UP SHOWER AREA WITH TOWELS AND SOAP.
--- NOTE | 2019-12-19 18:47 | NUR ---
BEDSIDE REPORT COMPLETE. PT SITTING UP IN BED WATCHING TV. ALERT AND ORIENTED X4. DENIES ANY NEEDS OR PAIN. PT IS CONCERNED ABOUT GOING HOME STATES HE DOES NOT FEEL THAT HE IS SAFE ENOUGH TO GO HOME WITHOUT FALLING. ADVISED PT THAT DAY NURSE HAS LEFT A NOTE FOR MRS. WELLER. PT VERBALIZED UNDERSTANDING. CL IN REACH. FALL PRECAUTIONS IN PLACE. WILL CONTINUE TO MONITOR
[2019-12-19 21:00] VITALS: BP 124/73
--- NOTE | 2019-12-20 00:33 | NUR ---
PT LYING IN BED EYES CLOSED RESTING COMFORTABLY. NO SIGNS OF ACUTE DISTRESS NOTED. CL IN REACH
--- NOTE | 2019-12-20 05:12 | NUR ---
PT LYING IN BED SUPINE EYES CLOSED RESTING. RR EVEN AND UNLABORED. CL IN REACH
[2019-12-20 08:00] VITALS: BP 127/79
--- NOTE | 2019-12-20 10:27 | NUR ---
PATIENT IS ALERT/ORIENT. SITTING UP ON THE SIDE OF HIS BED, WORKING ON CROSSWORD PUZZLE. CALL LIGHT WITHIN REACH. VOICES NO NEEDS. WILL CONTINUE WITH PLAN OF CARE
--- NOTE | 2019-12-20 18:37 | NUR ---
BEDSIDE REPORT COMPLETE. PT SITTING UP IN BED WATCHING TV. ALERT AND ORIENTED X4. DENIES ANY NEEDS OR PAIN. NO SIGNS OF ACUTE DISTRESS NOTED. CL IN REACH. FALL PRECAUTIONS IN PLACE. WILL CONTINUE TO MONITOR
[2019-12-20 20:00] VITALS: BP 126/82
--- NOTE | 2019-12-21 00:06 | NUR ---
PT LYING IN BED EYES CLOSED RESTING. RR EVEN AND UNLABORED. CL IN REACH
--- NOTE | 2019-12-21 03:22 | NUR ---
PT LYING IN BED EYES CLOSED RESTING. RR EVEN AND UNLABORED. CL IN REACH
[2019-12-21 06:42] LABS: BASOPHILS 0.3 % (0-2); EOSINOPHILS 2.7 % (0-7); HEMATOCRIT 37.9 % (42.0-54.0); HEMOGLOBIN 12.5 g/dL (13.5-17.5); IMMATURE GRANULOCYTES 1.1 % (0-5); LYMPHOCYTES 23.5 % (15-50); MCH 29.3 pg (26.0-34.0); MEAN PLATELET VOLUME 10.1 fL (7.4-10.4); MONOCYTES 6.2 % (2-11); NEUTROPHILS 66.2 % (40-80); PLATELET COUNT 314 10x3/uL (130-400); RBC 4.26 10x6/uL (4.20-6.10); RDW 13.2 % (11.5-14.5); WBC 7.5 10x3/uL (4.8-10.8)
[2019-12-21 06:47] LABS: CALC OSMOLALITY 280 mosm/kg (275-300); CALCIUM 8.8 mg/dL (8.5-10.1); CARBON DIOXIDE 27.5 mmol/L (21.0-32.0); CHLORIDE - SERUM 105 mmol/L (98-107); GLUCOSE 95 mg/dL (74-106); POTASSIUM - SERUM 3.9 mmol/L (3.5-5.1); SODIUM 139 mmol/L (136-145); UREA NITROGEN 20 mg/dL (7-18); eGFR NON AFRICAN AMERICAN 80 mL/min (90-120)
--- NOTE | 2019-12-21 07:05 | NUR ---
POSITIONED ON BACK, EYES CLOSED AND RESP EVEN AND UNLABORED. SIDERAILS UP X 2, BED IN LOW LOCKED POSITION AND CALL LIGHT IN REACH.
[2019-12-21 09:48] VITALS: BP 114/77
--- NOTE | 2019-12-21 10:22 | NUR ---
SPOKE WITH PATIENT AND HE FEELS THAT AT DISCHARGE HE WOULD LIKE A REFERRAL TO BE SENT TO [facility]. REFERRAL HAS BEEN FAXED
--- NOTE | 2019-12-21 14:03 | NUR ---
Nutrition Follow-up: Diet: Regular PO intake: 100% x all, reports good appetite. Last BM: 12/20/19. WT: 250# (12/12/19) Meds and labs reviewed. Recommend continue current diet. RD following.
--- NOTE | 2019-12-21 14:12 | NUR ---
PATIENTS INSURANCE HAS NO SNF BENEFIT. WILL CONTINUE TO FOLLOW WITH PATIENT.
--- NOTE | 2019-12-21 16:47 | RHP ---
PATIENT: LUCILA VITAL MEDICAL RECORD: [id number] ACCOUNT: [id number] LOCATION:[facility] Fabiola1108 : 59 ADMISSION DATE: 12/11/19 REHABILITATION HISTORY AND PHYSICAL EXAMINATION POST ADMISSION PHYSICIAN EXAMINATION ADMITTING DIAGNOSIS: Parkinson's disease. HISTORY OF PRESENT ILLNESS: The patient is a very friendly elderly gentleman who is admitted secondary to Parkinson's disease. He had a left rotator cuff tear that was repaired on 09/24 and a right radial head arthroplasty on 11/12 due to compound fracture of the radial head. He presented to Dr. Montiel's office following this up with new-onset shoulder pain. Said he has just not been doing well with his therapy secondary to his Parkinson's, he had multiple falls landing on his shoulder. On exam, he had an anterior dislocation of his left shoulder. He was scheduled for revision for a total shoulder arthroscopy. He presented to the OR on 12/07 for revision. Postop, he had an elevated temperature. He has progressed very slowly and due to his requiring extensive assistance for ADLs and mobility, he is very unsteady, he has got unsteady gait and unbalanced. He has a shuffling gait and requires constant cues for safely. Previously, he was moderately independent with a rolling walker for transfers to wheelchair and had mobility for short distances. He would like to return home at his prior level of functioning and will definitely need inpatient rehabilitation to do this. COMORBIDITIES: In this patient include debility, decreased mobility, falls, fever, hypertension, osteoarthritis, restless leg syndrome and weakness. PAST MEDICAL HISTORY: Significant for osteoarthritis, got a history of restless leg syndrome. He has got a history of Parkinson's. PAST SURGICAL HISTORY: Includes surgeries on his shoulder. He has also had a radial head fracture. He has had a deep brain stimulator placed. ALLERGIES: CHICKEN BONE MARROW. CURRENT MEDICATIONS: Include Cozaar 100 mg daily, Xanax 0.25 mg daily. He is on Sinemet 1 tab t.i.d. and Rockfall 10/325 one tab every 4 hours p.r.n. HABITS: No alcohol or tobacco use. FAMILY HISTORY: Noncontributory. SOCIAL HISTORY: The patient hopes to return back home and get back to his prior level of functioning. REVIEW OF SYSTEMS: GENERAL: Does complain of some weakness and fatigue. HEENT: Denies cold, cough, or congestion. CARDIOVASCULAR: Denies chest pain. PHYSICAL EXAMINATION: VITAL SIGNS: Stable, afebrile. GENERAL: A well-developed elderly gentleman, in no acute distress upon exam. HEENT: Normocephalic and atraumatic. Mucosa moist. HISTORY AND PHYSICAL [id number] LUCILA VITAL NECK: Supple. No lymphadenopathy. LUNGS: Clear at this time. HEART: Regular rate and rhythm. ABDOMEN: Soft, benign, and nondistended. Positive bowel sounds times 4. EXTREMITIES: You can see where he has had some recent shoulder surgery and arm surgery. NEUROLOGIC: Consistent with Parkinson's, got a pill-rolling tremor and unsteady gait. LABORATORY DATA: White count is 6.0, H&H of 10 and 32 and platelet count was noted to be 218. His sodium is 141, potassium 4.2, BUN and creatinine of 15 and 1.1, and blood sugars is noted to be 116. ASSESSMENT: This is a 64-year-old gentleman admitted to the rehab with a working diagnosis of Parkinson's with recent shoulder surgery. The patient has potential to make improvement. We instituted the following multidisciplinary therapies include, but not limited to physical, occupational, respiratory, speech, nutritional services, prosthetics and orthotics. Given his complex medical condition and risk for more complications, rehabilitation services cannot be provided at a low level of care such as senior care facility. PLAN: 1. Admit to [facility] for intensive inpatient therapy to include the following disciplines; A. Physical therapy to improve gait, all transfer skills and bed mobility to a modified independent level. B. Occupational therapy to a modified independent level. C. Case management to assist with discharge planning and placement options. D. Nutrition to assist with nutritional needs. E. Rehabilitation nursing to assist in monitoring the patient's underlying medical conditions and to assist with any type bowel or bladder management. 2. The patient's current medication and medical care will be continued. 3. The patient will be placed on standard fall precautions. 4. The patient's estimated length of stay is approximately 7-10 days. 5. We will adjust medications as needed and I am going to see again in the a.m. TRANSINT:[id number] Voice Confirmation ID: [id number] DOCUMENT ID: [id number] 12/14/2019 Edited for charlie JOHNSTON. PRESTON notes whether there has been none or any medical/functional change since admission: - No change since preadmission screen. PRESTON attests patient continues to be appropriate for IRF: - Continues to be appropriate. HISTORY AND PHYSICAL [id number] LUCILA VITAL,JOSE SARMIENTO MD at 1647 CC: [id number] DICTATION DATE: 12/12/19 1239 MERCHANT TAILOR: 12/12/19 1343 ADM IN [place] [id number] [place] [address]
--- NOTE | 2019-12-21 18:58 | NUR ---
GREETED PATIENT AND INTRODUCED MYSELF HIS NURSE. PATIENT IS LAYING IN BED WATCHING TV AT THIS TIME. RESPIRATIONS EVEN. NO S/S OF DISTRESS. DENIES ANY NEEDS AT THIS TIME. BEDSIDE SHIFT REPORT COMPLETE FROM OFF GOING NURSE. CALL LIGHT IN REACH.
[2019-12-21 20:41] VITALS: BP 125/83
--- NOTE | 2019-12-22 02:23 | NUR ---
PT. RESTING QUIETLY WITH EYES CLOSED. RESPIRATIONS EVEN, NO S/S OF DISTRESS. CALL LIGHT IN REACH.
[2019-12-22 15:02] VITALS: BP 122/77
--- NOTE | 2019-12-22 18:03 | NUR ---
PT RESTING IN BED, DENIES NEEDS. WCTM.
--- NOTE | 2019-12-22 19:16 | NUR ---
GREETED PATIENT AND INTRODUCED MYSELF HIS NURSE. PATIENT IS LAYING IN BED RESTING QUIETLY AT THIS TIME. RESPIRATIONS EVEN. NO S/S OF DISTRESS. CALL LIGHT IN REACH. PT DENIES ANY NEEDS AT THIS TIME. BEDSIDE SHIFT REPORT COMPLETED FROM OFF GOING NURSE.
[2019-12-23 00:07] VITALS: BP 118/62
--- NOTE | 2019-12-23 01:58 | NUR ---
PT. AWAKE AND RESTING QUIETLY IN BED. ADMINISTERED PRN PAIN MEDICATION FOR PAIN IN LEFT SHOULDER. CALL LIGHT IN REACH. WCTM.
[2019-12-23 08:55] LABS: BASOPHILS 0.3 % (0-2); EOSINOPHILS 2.6 % (0-7); HEMATOCRIT 40.4 % (42.0-54.0); HEMOGLOBIN 13.3 g/dL (13.5-17.5); LYMPHOCYTES 25.5 % (15-50); MCH 29.3 pg (26.0-34.0); MCHC 32.9 g/dL (31.0-37.0); MONOCYTES 5.1 % (2-11); NEUTROPHILS 65.5 % (40-80); PLATELET COUNT 315 10x3/uL (130-400); RBC 4.54 10x6/uL (4.20-6.10); RDW 13.2 % (11.5-14.5); WBC 6.9 10x3/uL (4.8-10.8)
[2019-12-23 09:03] LABS: CALC OSMOLALITY 281 mosm/kg (275-300); CARBON DIOXIDE 28.1 mmol/L (21.0-32.0); CHLORIDE - SERUM 105 mmol/L (98-107); GLUCOSE 125 mg/dL (74-106); POTASSIUM - SERUM 3.8 mmol/L (3.5-5.1); SODIUM 139 mmol/L (136-145); UREA NITROGEN 20 mg/dL (7-18); eGFR NON AFRICAN AMERICAN 80 mL/min (90-120)
[2019-12-23 09:36] VITALS: BP 115/73
--- NOTE | 2019-12-23 10:21 | NUR ---
CLINICAL UPDATES FAXED TO [facility] ) AUTH. # [id number] WITH A TENATIVE DISCHARGE DATE OF 12-25-2019. CONFORMATION RECIEVED
--- NOTE | 2019-12-23 16:34 | NUR ---
CARE TEAM MEETING: PATIENT DOING WELL IN THERAPY. TENATIVE DISCHARGE DATE IS 12/25/2019. PATIENT WILL DISCHARGE HOME WITH HIS SPOUSE. WILL CONTINUE TO FOLLOW WITH PATIENT.
--- NOTE | 2019-12-23 18:47 | NUR ---
GREETED PATIENT AND INTRODUCED MYSELF HIS NURSE. PATIENT IS LAYING IN BED WATCHING TV AT THIS TIME. RESPIRATIONS EVEN. NO S/S OF DISTRESS. PT DENIES ANY NEEDS AT THIS TIME. CALL LIGHT IN REACH.
[2019-12-23 21:20] VITALS: BP 129/83
--- NOTE | 2019-12-24 01:22 | NUR ---
PT. RESTING QUIETLY WITH EYES CLOSED. RESPIRATIONS EVEN. NO S/S OF DISTRESS. CALL LIGHT IN REACH.
--- NOTE | 2019-12-24 04:05 | NUR ---
PT RESTING QUIETLY WITH EYES CLOSED. RESPIRATIONS EVEN. NO S/S OF DISTRESS. CALL LIGHT IN REACH.
--- NOTE | 2019-12-24 08:00 | NUR ---
PT AM MEDS ADMINISTERED. PT DENIES NEEDS. WCTM.
[2019-12-24 09:21] VITALS: BP 116/80
[2019-12-24] MEDS ORDERED: HYDROCODON-ACE1 EA10 PO (10:45)
--- NOTE | 2019-12-24 17:56 | NUR ---
PT SITTING UP IN BED, EATING DINNER, DENIES NEEDS. WCTM.
--- NOTE | 2019-12-24 18:49 | NUR ---
GREETED PATIENT AND INTRODUCED MYSELF HIS NURSE. PATIENT IS LAYING IN BED RESTING QUIETLY VISITING WITH FAMILY. RESPIRATIONS EVEN. NO S/S OF DISTRESS. DENIES ANY NEEDS AT THIS TIME. CALL LIGHT IN REACH.
--- NOTE | 2019-12-24 18:53 | NUR ---
GREETED PATIENT AND INTRODUCED MYSELF HIS NURSE. PATIENT IS LAYING IN BED RELAXING AT THIS TIME WATCHING TV. RESPIRATIONS EVEN. NO S/S OF DISTRESS. DENIES ANY NEEDS AT THIS TIME. CALL LIGHT IN REACH.
[2019-12-24 22:57] VITALS: BP 139/83
--- NOTE | 2019-12-25 00:30 | NUR ---
PT RESTING QUIETLY WITH EYES CLOSED. RESPIRATIONS EVEN. NO S/S OF DISTRESS. CALL LIGHT IN REACH.
--- NOTE | 2019-12-25 03:30 | NUR ---
PT RESTING QUIELTY WITH EYES CLOSED. RESPIRATIONS EVEN. NO S/S OF DISTRESS. CALL LIGHT IN REACH.
[2019-12-25 07:45] LABS: BASOPHILS 0.5 % (0-2); EOSINOPHILS 3.6 % (0-7); HEMATOCRIT 38.1 % (42.0-54.0); HEMOGLOBIN 12.6 g/dL (13.5-17.5); IMMATURE GRANULOCYTES 0.7 % (0-5); LYMPHOCYTES 28.4 % (15-50); MCH 29.8 pg (26.0-34.0); MCHC 33.1 g/dL (31.0-37.0); MCV 90.1 fL (80.0-100.0); MEAN PLATELET VOLUME 9.9 fL (7.4-10.4); MONOCYTES 7.3 % (2-11); NEUTROPHILS 59.5 % (40-80); PLATELET COUNT 280 10x3/uL (130-400); RBC 4.23 10x6/uL (4.20-6.10); RDW 13.3 % (11.5-14.5); WBC 5.5 10x3/uL (4.8-10.8)
--- NOTE | 2019-12-25 08:00 | NUR ---
PATIENT SITTING UP IN BED TO EAT BREAKFAST. ALERT/ORIENT. CALL LIGHT WITHIN REACH. PLAN TO DISCHARGE HOME TODAY.
[2019-12-25 08:06] LABS: CALC OSMOLALITY 284 mosm/kg (275-300); CALCIUM 8.3 mg/dL (8.5-10.1); CHLORIDE - SERUM 106 mmol/L (98-107); GLUCOSE 90 mg/dL (74-106); POTASSIUM - SERUM 4.3 mmol/L (3.5-5.1); SODIUM 142 mmol/L (136-145); UREA NITROGEN 17 mg/dL (7-18); eGFR NON AFRICAN AMERICAN 80 mL/min (90-120)
[2019-12-25 09:52] VITALS: BP 123/82
--- NOTE | 2019-12-25 10:06 | NUR ---
DISCHARGE MEDICATIONS GONE OVER WITH PATIENT. DISCHARGED MEDICATIONS CALLED INTO [facility] ON [address]
--- NOTE | 2019-12-25 12:30 | NUR ---
PATIENT DISCHARGING HOME TODAY WITH FAMILY.[facility] WILL RESUME THERAPY AT HOME. NO NEW DME NEEDED AT THIS TIME. DR. SAM ([place]) 01/07/20 @ 1:30, DR. MENDOZA 12/29/19 @ 9:00. PATIENT CHOICE FORM SIGNED FOR HOME HEALTH, NO COMPARE DATA REVIEWD PATIENT IS A CLIENT ALREADY. DISCHARGE INSTRUCTIONS FAXED TO PCP, HOME HEALTH AND REVIEWED WITH PATIENT. DISHCARGE HAS BEEN FAXED TO [facility] , AUTH. # [id number] WITH CONFORMATION RECIEVED
--- NOTE | 2019-12-25 12:42 | NUR ---
DISCHARGED INSTRUCTIONS GIVEN TO PATIENT
--- NOTE | 2019-12-25 13:51 | NUR ---
PATIENTS FRIEND HERE TO PICK PATIENT UP AND TAKE PATIENT HOME. PATIENT HELPED OUT TO CAR BY STAFF
== END 2019-12-25 13:53 | disposition home health service (06) | DRG 57 ==
LOC: D.REHAB 14:29
PROVIDERS: ADMIT Emergency Medicine; ATTEND Emergency Medicine
DX: G20 Parkinson's disease (principal); R53.81 Other malaise; R50.9 Fever, unspecified; I10 Essential (primary) hypertension; G25.81 Restless legs syndrome; R53.1 Weakness; M19.90 Unspecified osteoarthritis, unspecified site; Z47.89 Encounter for other orthopedic aftercare; R73.9 Hyperglycemia, unspecified